=== PATIENT | female | born 1955 | race Caucasian/White ===

== ENCOUNTER 2017-05-08 21:52 | Inpatient (IN) | payer OTHER ==
--- NOTE | 2017-05-09 03:41 | PDOC ---
History of Present Illness - General History Source: Patient Exam Limitations: No Limitations - History of Present Illness Initial Comments: 05/09/17 04:19 The patient is a 62 year old female, with significant past medical history of COPD, HTN, DM, GERD, Hepatitis B, who presents today complaining of SOB and cough for 3 weeks. The patient notes that she was recently admitted to [facility] in [place] on 04/27/17 for rhinovirus and discharged on 05/02/17. She reports that the SOB is exacerbated when talking, walking, and is accompanied by medial chest pain. She used her nebulizer this morning and has been taking tapering doses of prednisone. The cough is productive with green sputum. She also reports night sweats, chills, and subjective fever. Her PCP, Dr. Russo, requested that she be admitted to the hospital. The patient notes left sided rib pain that is preventing her from sleeping on her side at night. Denies nausea, vomiting, abdominal pain. Denies leg swelling. Denies hemoptysis. Allergies: sulfamethoxazole, trimethoprim, IV dye Social Hx: Quit smoking 2 weeks ago. Lives at home alone at a ground level apartment. PCP- Dr. Russo <Christie Burch - Last Filed: 05/09/17 05:19> <Christy Bray - Last Filed: 05/09/17 06:34> - General Chief Complaint: Shortness of Breath Stated Complaint: SHORTNESS OF BREATH Time Seen by Provider: 05/09/17 01:08 Past History <Christie Burch - Last Filed: 05/09/17 05:19> - Past Medical History Anemia: No Asthma: No Cancer: No Cardiac Disorders: No CVA: No COPD: Yes CHF: No Dementia: No Diabetes: Yes GI Disorders: Yes (Acid reflux.) Disorders: No HTN: Yes Hypercholesterolemia: Yes Kidney Stones: No Liver Disease: Yes (hep b+ on medicATION) Suicide Attempt (Hx): Yes (in 1988, NO SUICIDAL IDEATION AT PRESENT) Seizures: No Thyroid Disease: Yes (THYROID NODULES NOT ON ANY MEDS) - Surgical History Abdominal Surgery: Yes (hemmorhoidectomy,left ovary removed) Orthopedic Surgery: Yes (Sx big R toe) - Reproductive History PID: No - Psycho/Social/Smoking Cessation Hx Anxiety: Yes Suicidal Ideation: No Smoking History: Former smoker Have you smoked in the past 12 months: Yes Number of Cigarettes Smoked Daily: 10 If you are a former smoker, when did you quit?: 2 weeks Information on smoking cessation initiated: No 'Breaking Loose' booklet given: 08/02/14 Hx Alcohol Use: No Drug/Substance Use Hx: Yes Substance Use Type: Heroin, Prescribed, Tranquilizers Hx Substance Use Treatment: Yes <Christy Bray - Last Filed: 05/09/17 06:34> - Past Medical History Allergies/Adverse Reactions: Allergies Allergy/AdvReac Type Severity Reaction Status Date / Time sulfamethoxazole Allergy Hives Verified 05/08/17 22:04 [From Bactrim] trimethoprim [From Bactrim] Allergy Hives Verified 05/08/17 22:04 iv dye Allergy Uncoded 05/08/17 22:04 Home Medications: Ambulatory Orders Albuterol 0.083% Nebulizer [place] [Ventolin 0.083% Nebulizer Soln -] 1 amp NEB PRN 05/09/17 Alprazolam [Xanax] 1 mg PO DAILY 05/09/17 Aspirin [ASA -] 81 mg PO DAILY 05/09/17 Azithromycin 250 mg PO DAILY 05/09/17 Dorzolamide HCl/Timolol Maleat [Cosopt Eye Drops] 10 ml OP TID 05/09/17 Enalapril Maleate [Vasotec] 20 mg PO DAILY 05/09/17 Fluoxetine HCl [Prozac] 40 mg PO DAILY 05/09/17 Flurazepam HCl 30 mg PO HS 05/09/17 Fluticasone/Salmeterol [Advair 250-50 Diskus] 05/09/17 Furosemide [Lasix -] 40 mg PO DAILY 05/09/17 Gabapentin [Neurontin -] 100 mg PO Q8H 05/09/17 Latanoprost 0.005% Eye Drops [Xalatan 0.005% Eye Drops -] 1 drop OS HS 05/09/17 Nifedipine [Nifedipine ER] 60 mg PO DAILY 05/09/17 Omeprazole Magnesium [Prilosec] 10 mg PO DAILY 05/09/17 Prednisone 10 mg PO DAILY 05/09/17 Tiotropium [place] [Spiriva] 18 mcg IH DAILY 05/09/17 Review of Systems - Review of Systems Able to Perform ROS?: Yes Comments:: 05/09/17 04:21 GENERAL/CONSTITUTIONAL: +subjective fever, night sweats, chills. HEAD, EYES, EARS, NOSE AND THROAT: No change in vision. No ear pain or discharge. No sore throat. CARDIOVASCULAR:+medial chest pain. RESPIRATORY: +SOB, +productive cough. No hemoptysis. GASTROINTESTINAL: No nausea, vomiting, diarrhea or constipation. GENITOURINARY: No dysuria, frequency, or change in urination. MUSCULOSKELETAL: No joint or muscle swelling or pain. No neck or back pain. SKIN: No rash NEUROLOGIC: No headache, vertigo, loss of consciousness, or change in strength/ sensation. ENDOCRINE: No increased thirst. No abnormal weight change. HEMATOLOGIC/LYMPHATIC: No anemia, easy bleeding, or history of blood clots. ALLERGIC/IMMUNOLOGIC: No hives or skin allergy. <Christie Burch - Last Filed: 05/09/17 05:19> *Physical Exam - Vital Signs Last Vital Signs Temp Pulse Resp BP Pulse Ox 98.5 F 82 18 123/61 97 05/08/17 22:00 05/08/17 22:00 05/08/17 22:00 05/08/17 22:00 05/08/17 22:00 - Physical Exam Comments: 05/09/17 04:21 GENERAL: Awake, alert, and fully oriented, in no acute distress HEAD: No signs of trauma EYES: PERRLA, EOMI, sclera anicteric, conjunctiva clear ENT: Auricles normal inspection, hearing grossly normal, nares patent, oropharynx clear without exudates. Moist mucosa NECK: Normal ROM, supple, no lymphadenopathy, JVD, or masses LUNGS: +wheezing throughout lungs bilaterally. No crackles. HEART: Regular rate and rhythm, normal S1 and S2, no murmurs, rubs or gallops ABDOMEN: Soft, nontender, normoactive bowel sounds. No guarding, no rebound. No masses EXTREMITIES: Normal range of motion, no edema. No clubbing or cyanosis. No cords, erythema, or tenderness NEUROLOGICAL: Cranial nerves II through XII grossly intact. Normal speech, normal gait SKIN: Warm, Dry, normal turgor, no rashes or lesions noted. <Christie Burch - Last Filed: 05/09/17 05:19> - Vital Signs Last Vital Signs Temp Pulse Resp BP Pulse Ox 98.5 F 82 18 123/61 97 05/08/17 22:00 05/08/17 22:00 05/08/17 22:00 05/08/17 22:00 05/08/17 22:00 <Christy Bray - Last Filed: 05/09/17 06:34> ED Treatment Course - LABORATORY CBC & Chemistry Diagram: 05/09/17 04:18 05/09/17 04:18 - RADIOLOGY Radiograph Interpretation: 05/09/17 05:15 EXAM: CT chest without contrast IMAGES: [id number] INDICATION: Cough with chills and sweats DATE OF SERVICE: 2017-05-09 04:38:09.0 COMPARISON: none FINDINGS: There is no aortic aneurysm. There is no significant mediastinal or hilar adenopathy. The heart size is normal. Coronary artery calcifications are noted The trachea and bronchi are patent. There is no pleural or pericardial effusion. The lungs are clear. Intra-abdominal structures are notable only for tiny nonobstructing left renal stone. IMPRESSION: No acute pathology. THIS DOCUMENT HAS BEEN ELECTRONICALLY SIGNED Smooth Chávez MD <Christie Burch - Last Filed: 05/09/17 05:19> - LABORATORY CBC & Chemistry Diagram: 05/09/17 04:18 05/09/17 04:18 <Christy Bray - Last Filed: 05/09/17 06:34> Medical Decision Making - Medical Decision Making 05/09/17 06:31 Pt will be admitted to her [facility]'s service, as he sent her for admission for a week of SOB, hot and cold chills and subjective fevers and COPD exacerbation. Pt has green productive cough. However, her CT scan of her chest shows no pathology. SHe states that she was exposed to her son, who recently traveled to [facility] from [facility], [place] where he has lived for the last 4 years. Pt has a normal exam. She is afebrile. The only positive finding is Bilateral wheezing in her lung hassan throughout. Patient Name: Verónica Gutierrez THIS IS A PRELIMINARYREPORT FROM [facility] EXAM: CT chest without contrast IMAGES: [id number] INDICATION: Cough with chills and sweats DATE OF SERVICE: 2017-05-09 04:38:09.0 COMPARISON: none FINDINGS: There is no aortic aneurysm. There is no significant mediastinal or hilar adenopathy. The heart size is normal. Coronary artery calcifications are noted The trachea and bronchi are patent. There is no pleural or pericardial effusion. The lungs are clear. Intra-abdominal structures are notable only for tiny nonobstructing left renal stone.. IMPRESSION: No acute pathology. THIS DOCUMENT HAS BEEN ELECTRONICALLY SIGNED Dr. Leo arreola and is aware of the patient. <Christy Bray - Last Filed: 05/09/17 06:34> *DC/Admit/Observation/Transfer - Attestations Scribe Attestion: 05/09/17 04:22 Documentation prepared by FANNY Harris, acting as biomedical repair technician for Christy Bray MD. <Christie Burch - Last Filed: 05/09/17 05:19> - Discharge Dispostion Admit: Yes <Christy Bray - Last Filed: 05/09/17 06:34> Diagnosis at time of Disposition: COPD (chronic obstructive pulmonary disease) with emphysema, Obesity, Nicotine dependence - Referrals Referrals: Cait Russo MD [Primary Care Provider] -
[2017-05-09] MEDS ORDERED: ALBUTEROL SO4 2.5/IPRATROPIUM 0.5 INH SOL 3 ML VIAL.NEB. NEB ONE (04:04)
[2017-05-09] MEDS ORDERED: DOXYCYCLINE INJECTION 100 MG in DEXTROSE 5%-WATER - 100 ML IVPB ONE (04:04)
[2017-05-09 04:26] LABS: BASOPHIL 0.7 % (0-2.0); EOSINOPHIL 0.5 % (0-4.5); MCH 29.8 pg (25.7-33.7); MCHC 33.1 g/dl (32.0-36.0); MEAN CELL VOLUME 89.9 fl (80-96); MEAN PLT VOLUME 7.9 fl (7.5-11.1); PLATELET COUNT 269 K/MM3 (134-434); RDW 12.3 % (11.6-15.6); WHITE BLOOD COUNT 14.8 K/mm3 (4.0-10.0)
[2017-05-09 05:06] LABS: ALBUMIN 3.6 g/dl (3.4-5.0); ALK PHOS 120 U/L (45-117); ANION GAP 8 (8-16); BILIRUBIN,TOTAL 0.4 mg/dL (0.2-1.0); CALCIUM 9.2 mg/dL (8.5-10.1); CO2 30 mmol/L (21-32); GLUCOSE,RANDOM 194 mg/dL (74-106); SGPT/ALT 25 U/L (12-78); TOT PROT 6.8 g/dl (6.4-8.2)
[2017-05-09 05:10] LABS: SGOT/AST 19 U/L (15-37)
[2017-05-09] MEDS ORDERED: ALBUTEROL SO4 0.083% IH SOL 2.5 MG/3 ML VIAL.NEB. NEB PRN (10:46)
[2017-05-09 11:28] VITALS: BMI 35.2
[2017-05-09] MEDS ORDERED: LEVOFLOXACIN 500 MG IVPB 100 ML IVPB SCH (11:45)
[2017-05-09] MEDS ORDERED: PATIENT'S OWN MEDICATION (NON-FORMULARY) (Dorzolamide Hcl/Timolol Maleat [Cosopt Eye Drops OP SCH (14:00)
[2017-05-09] MEDS: GABAPENTIN 100 MG CAPSULE (FP) PO SCH ×2 (14:13→22:39)
[2017-05-09] MEDS ORDERED: methylPREDNISolone NA SUCC 40 MG/1 ML VIAL IVPB SCH (18:00)
[2017-05-09] MEDS ORDERED: predniSONE 20 MG TABLET (UD) PO ONE (21:30)
[2017-05-09] MEDS ORDERED: FLURAZEPAM HCL 30 MG PO SCH (22:00)
[2017-05-09] MEDS: TIMOLOL 0.5% OPHTHALMIC SOL 5 ML BOTTLE OU SCH (22:39)
[2017-05-09] MEDS: BUDESONIDE/FORMETEROL FUMARATE 80/4.5 mcg INHALER IH SCH (22:39)
[2017-05-09] MEDS: LATANOPROST 0.005% OPHTH SOLN 2.5ML BOTTLE OS SCH (22:40)
[2017-05-09] MEDS: ACLIDINIUM BROMIDE 400 MCG/INH AERO.POWD IH SCH (22:40)
[2017-05-09] MEDS: DORZOLAMIDE 2% HCL OPHTHALMIC SOLUTION 10 ML BOTTLE OU SCH (22:40)
--- NOTE | 2017-05-09 22:53 | HP ---
Admitting History and Physical - Admission Chief Complaint: Dyspnea for 3 weeks History of Present Illness: 62 y/o female with PMH as below, presents with 3 weeks of worsening cough, productive of greenish sputum, dyspnea, more on exertion and pleuritic chest pain. Pt was recently admitted to another facility for the same complaints. History Source: Patient, Medical Record, Caregiver Limitations to Obtaining History: No Limitations - Past Medical History Cardiovascular: Yes: HTN Pulmonary: Yes: COPD Gastrointestinal: Yes: GERD Hepatobiliary: Yes: Hepatitis B Psych: Yes: Depression Endocrine: Yes: Diabetes Mellitus, Other (Thyroid nodule) - Past Surgical History Past Surgical History: Yes: Oopherectomy Additional Past Surgical History: Hemorrhoidectome, toe surgery - Smoking History Smoking history: Former smoker Have you smoked in the past 12 months: Yes Aproximately how many cigarettes per day: 4 If you are a former smoker, when did you quit?: 2 weeks - Alcohol/Substance Use Hx Alcohol Use: No History of Substance Use: reports: None Home Medications - Allergies Allergies/Adverse Reactions: Allergies Allergy/AdvReac Type Severity Reaction Status Date / Time methylprednisolone Allergy Verified 05/09/17 17:57 sulfamethoxazole Allergy Hives Verified 05/08/17 22:04 [From Bactrim] trimethoprim [From Bactrim] Allergy Hives Verified 05/08/17 22:04 iv dye Allergy Uncoded 05/08/17 22:04 - Home Medications Home Medications: Ambulatory Orders Albuterol 0.083% Nebulizer [place] [Ventolin 0.083% Nebulizer Soln -] 1 amp NEB PRN 05/09/17 Alprazolam [Xanax] 1 mg PO DAILY 05/09/17 Aspirin [ASA -] 81 mg PO DAILY 05/09/17 Azithromycin 250 mg PO DAILY 05/09/17 Dorzolamide HCl/Timolol Maleat [Cosopt Eye Drops] 10 ml OP TID 05/09/17 Enalapril Maleate [Vasotec] 20 mg PO DAILY 05/09/17 Fluoxetine HCl [Prozac] 40 mg PO DAILY 05/09/17 Flurazepam HCl 30 mg PO HS 05/09/17 Fluticasone/Salmeterol [Advair 250-50 Diskus] 05/09/17 Furosemide [Lasix -] 40 mg PO DAILY 05/09/17 Gabapentin [Neurontin -] 100 mg PO Q8H 05/09/17 Latanoprost 0.005% Eye Drops [Xalatan 0.005% Eye Drops -] 1 drop OS HS 05/09/17 Nifedipine [Nifedipine ER] 60 mg PO DAILY 05/09/17 Omeprazole Magnesium [Prilosec] 10 mg PO DAILY 05/09/17 Prednisone 10 mg PO DAILY 05/09/17 Tiotropium [place] [Spiriva] 18 mcg IH DAILY 05/09/17 Family Disease History - Family Disease History Family History: Unremarkable Review of Systems - Review of Systems Constitutional: reports: Chills, Fever Eyes: reports: No Symptoms Cardiovascular: reports: Shortness of Breath Respiratory: reports: SOB, SOB on Exertion Neurological: reports: Weakness Physical Examination Vital Signs: Vital Signs Temperature 98.7 F 05/09/17 18:00 Pulse Rate 65 05/09/17 18:00 Respiratory Rate 20 05/09/17 18:00 Blood Pressure 143/76 05/09/17 18:00 O2 Sat by Pulse Oximetry (%) 98 05/09/17 08:55 Constitutional: Yes: No Distress HENT: Yes: Atraumatic, Normocephalic Neck: Yes: Supple Cardiovascular: Yes: Regular Rate and Rhythm, S1, S2 Respiratory: Yes: Regular, Rhonchi Gastrointestinal: Yes: Normal Bowel Sounds, Soft Neurological: Yes: Alert, Oriented. No: Loss of Sensation ...Motor Strength: WNL Imaging - Results Cat Scan: Report Reviewed Problem List - Problems (1) COPD (chronic obstructive pulmonary disease) with emphysema Assessment/Plan: Steroids, nebs, pulmonary evaluation Code(s): J43.9 - EMPHYSEMA, UNSPECIFIED Qualifiers: Emphysema type: unspecified Qualified Code(s): J43.9 - Emphysema, unspecified (2) HTN (hypertension) Assessment/Plan: Controlled Code(s): I10 - ESSENTIAL (PRIMARY) HYPERTENSION Qualifiers: Hypertension type: essential hypertension Qualified Code(s): I10 - Essential (primary) hypertension (3) Hepatitis B Assessment/Plan: Controlled, on treatment Code(s): B19.10 - UNSPECIFIED VIRAL HEPATITIS B WITHOUT HEPATIC COMA (4) Type 2 diabetes mellitus Assessment/Plan: Monitor, insulin as needed Code(s): E11.9 - TYPE 2 DIABETES MELLITUS WITHOUT COMPLICATIONS Qualifiers: Diabetes mellitus complication status: without complication Diabetes mellitus halfway insulin use: with halfway use Qualified Code(s): E11.9 - Type 2 diabetes mellitus without complications (5) Leukocytosis Assessment/Plan: May be due to acute bronchitis. Empiric antibiotics started. Urine and blood c/ s pending Code(s): D72.829 - ELEVATED WHITE BLOOD CELL COUNT, UNSPECIFIED Qualifiers: Leukocytosis type: unspecified Qualified Code(s): D72.829 - Elevated white blood cell count, unspecified
[2017-05-10] MEDS: TIMOLOL 0.5% OPHTHALMIC SOL 5 ML BOTTLE OU SCH ×3 (01:18→23:21)
[2017-05-10] MEDS: INSULIN SLIDING SCALE (NOVOLOG) 1 VIAL SQ SCH ×4 (04:16→17:29)
[2017-05-10] MEDS: GABAPENTIN 100 MG CAPSULE (FP) PO SCH ×3 (05:58→23:14)
[2017-05-10] MEDS ORDERED: PT OWN MED DRAWER 7, Y5N ONE ×2 (06:42→23:01)
[2017-05-10] MEDS ORDERED: ACETAMINOPHEN 325 MG TABLET (FP) PO PRN (07:22)
--- NOTE | 2017-05-10 07:29 | PN ---
Progress Note (short form) - Note Progress Note: Feels weak with chills and productive green sputum, wheezing. Vital Signs Period Temp Pulse Resp BP Sys/Gordon Pulse Ox Last 24 Hr 98.2 F-98.7 F 55-66 20-20 136-151/72-84 94-98 Afebrile in hospital no thrush neck supple S1S2 RRR SM diffuse bilateral expiratory wheezing abd soft mild lower thoracic back tenderness on palpation no edema nonfocal neuro exam Imp Acute COPD exacerbation Bronchitis -has been treated with iv steroids,medrol dose pack,zithromax since ~04.28.17 , has been on levaquin for past 4 days without improvement -she was diagnosed with rhinovirus infection NIDDM Obesity Smoking history-last use 2 weeks ago Plan iv steroids po augmentin pulmonary eval echo for pericardial effusion GI/DVT prophylaxis
[2017-05-10 08:20] LABS: MCHC 33.5 g/dl (32.0-36.0); MEAN CELL VOLUME 89.4 fl (80-96); MEAN PLT VOLUME 8.4 fl (7.5-11.1); PLATELET COUNT 251 K/MM3 (134-434); WHITE BLOOD COUNT 11.2 K/mm3 (4.0-10.0)
[2017-05-10 08:46] LABS: ALBUMIN 3.4 g/dl (3.4-5.0); ALK PHOS 108 U/L (45-117); ANION GAP 11 (8-16); BILIRUBIN,TOTAL 0.3 mg/dL (0.2-1.0); CALCIUM 9.1 mg/dL (8.5-10.1); CO2 26 mmol/L (21-32); GLUCOSE,RANDOM 290 mg/dL (74-106); MAGNESIUM 2.4 mg/dL (1.8-2.4); SGOT/AST 14 U/L (15-37); SGPT/ALT 24 U/L (12-78); TOT PROT 6.4 g/dl (6.4-8.2)
[2017-05-10] MEDS: AMOX TR/POT CLAV 875MG/125MG TABLETS (FP) PO SCH ×2 (09:00→17:47)
[2017-05-10] MEDS ORDERED: ALPRAZolam 2 MG TABLET PO SCH (10:00)
[2017-05-10] MEDS ORDERED: ENOXAPARIN NA (PORCINE) 40 MG/0.4 ML DISP.SYRIN SQ SCH (10:00)
[2017-05-10] MEDS ORDERED: ASPIRIN 81 MG CHEWABLE TABLETS PO SCH (10:00)
[2017-05-10] MEDS ORDERED: TIOTROPIUM BROMIDE 18 MCG/INH (DEVICE W/ 5 CAPSULES) IH SCH (10:00)
[2017-05-10] MEDS ORDERED: NIFEdipine E.R 60 MG TABLET (UD) PO SCH (10:00)
[2017-05-10] MEDS ORDERED: predniSONE 20 MG TABLET (UD) PO SCH (10:00)
[2017-05-10] MEDS: FLUoxetine HCL 20 MG CAPSULE (FP) PO SCH (10:17)
[2017-05-10] MEDS: FUROSEMIDE 40 MG TABLET (FP) PO SCH (10:17)
[2017-05-10] MEDS: ENALAPRIL MALEATE 10 MG TABLET (FP) PO SCH (10:17)
[2017-05-10] MEDS: BUDESONIDE/FORMETEROL FUMARATE 80/4.5 mcg INHALER IH SCH ×2 (10:18→23:21)
[2017-05-10] MEDS: PANTOPRAZOLE 20 MG TABLET (FP) PO SCH (10:18)
[2017-05-10] MEDS: ACLIDINIUM BROMIDE 400 MCG/INH AERO.POWD IH SCH ×2 (10:24→23:21)
[2017-05-10] MEDS: DORZOLAMIDE 2% HCL OPHTHALMIC SOLUTION 10 ML BOTTLE OU SCH ×2 (10:24→23:19)
--- NOTE | 2017-05-10 10:40 | EKG ---
Test Reason : Blood Pressure : / mmHG Vent. Rate : 065 BPM Atrial Rate : 065 BPM P-R Int : 140 ms QRS Dur : 088 ms QT Int : 410 ms P-R-T Axes : 043 045 061 degrees QTc Int : 426 ms NORMAL SINUS RHYTHM POSSIBLE LEFT ATRIAL ENLARGEMENT NONSPECIFIC T WAVE ABNORMALITY ABNORMAL ECG WHEN COMPARED WITH ECG OF 18-JUL-2014 14:45, NO SIGNIFICANT CHANGE WAS FOUND Confirmed by PENNY ARRIAGA MD ([id number]) on 05/10/2017 10:40:18 AM Referred By: Confirmed By:PENNY ARRIAGA MD
[2017-05-10] MEDS: methylPREDNISolone NA SUCC 40 MG/1 ML VIAL IVPB SCH ×2 (11:00→17:47)
[2017-05-10 11:29] LABS: URINE APPEARANCE SLCLOUDY; URINE BILIRUBIN NEGATIVE (NEGATIVE); URINE BLOOD NEGATIVE (NEGATIVE); URINE COLOR LTYELLOW; URINE GLUCOSE (UA) 3+ (NEGATIVE); URINE KETONE TRACE (NEGATIVE); URINE NITRITE NEGATIVE (NEGATIVE); URINE PROTEIN NEGATIVE (NEGATIVE); URINE UROBILINOGEN NEGATIVE E.U./dl (0.2-1.0)
[2017-05-10 11:30] LABS: URINE LEUK ESTERASE TRACE (NEGATIVE)
[2017-05-10 11:47] LABS: CALCIUM OXALATE CRYSTALS RARE /hpf (NONE SEEN); URINE BACTERIA RARE /hpf (NONE SEEN); URINE MUCUS RARE; URINE RBC 1 /hpf (0-3); URINE WBC 11 /hpf (3-5); YEAST RARE
--- NOTE | 2017-05-10 13:57 | CONSULT ---
Consultation: REQUESTING PROVIDER: CONSULT REQUEST: We have been asked to medically evaluate this patient for COPD exacerbation/PNA. CC: Shortness of breathe HISTORY OF PRESENT ILLNESS: 62 y/o woman w/ pmh of COPD, GERD, HTN and DM, who presented to the ED with 1.5 weeks of worsening cough and SOB after viral URI. As baseline, pt has poor exercise tolerance, able to ambulate around 0.5 blocks before becoming SOB, with hx of multiple COPD exacerbations requiring hospitalization over the past 8 -9 years. Pt was in this normal state of health, when she endorses seeing her son, who had recently returned from a trip to [place] with infectious symptoms ( fever, chills, cough). 2 days later, the pt states she began feeling chills and fever, sweating with severe throat pain. She was admitted at [facility] for her condition and was diagnosed with a suspected viral URI. Pt states she was negative for PNA at the time. She was treated conservatively and d/c'ed 6 days later on Azithromycin and steroid taper after developing a productive cough with green sputum and rhinorrhea during the admission. Pt was seen by her PMD after d/c recent to this admission and was urged to return to hospital due to cough and respiratory status. Pt endorses fever, chills, SOB, productive cough and rhinorrhea, as well as upper and lower extremity swelling of 1 weeks duration. She denies hemoptysis, CHAO, N/V, recent changes in bowel movements, dysuria, abdominal pain, or chest pain. She denies recent travel, changes in activity level/diet, exposure to allergens or medication changes. She has been hospitalized 10-11 times over the past 8-9 years for COPD exacerbation, but states this admission is different given her infectious symptoms. She is currently on 2L NC O2 at home PRN, in addition to duoneb, spiriva, and albuterol, but endorses moderate symptom control. Uses inhaler every day. Endorses a 50 year smoking hx, 1ppd, quitting 2 weeks ago. Recent hospitalization for PNA 1 month ago w/ uncomplicated course. PMH As stated above: Asthma - dx at 30-40s MRSA cellulitis - 2013 Hep B Depression Thyroid nodule Congenital MVP per pt PSH oopherectomy hemorrhoidectomy partial hysterectomy tonsillectomy carpal tunnel surgery Allergies Methylpredisolone - Chest tightness Sulfa drugs - Hives IV contrast - Unknown Fam Hx Father w/ lung CA. Mother with COPD. Aunt w/ CAD. Son w/ asthma. Social Hx 50 py smoking hx, quit 2 weeks ago. No drugs. No alcohol. Worked as house painter, nanny, other odd jobs, now retired. REVIEW OF SYSTEMS: CONSTITUTIONAL: Fevers, chills, diaphoresis, weakness, malaise Absent: loss of appetite, weight change HEENT: rhinorrhea, nasal congestion, throat pain, throat swelling, odynophagia Absent: mouth swelling, ear pain, eye pain, visual changes CARDIOVASCULAR: chest pain, palpitations Absent: syncope, irregular heart rate, lightheadedness, peripheral edema RESPIRATORY: cough, shortness of breath, dyspnea with exertion, wheezing Absent: orthopnea, wheezing, hemoptysis GASTROINTESTINAL: Constipation Absent: abdominal pain, abdominal distension, nausea, vomiting, diarrhea, melena, hematochezia GENITOURINARY: Absent: dysuria, frequency, urgency, hesitancy, hematuria, flank pain, genital pain MUSCULOSKELETAL: Absent: myalgia, arthralgia, joint swelling, back pain, neck pain HEMATOLOGIC/IMMUNOLOGIC: Absent: easy bleeding, easy bruising, lymphadenopathy, frequent infections NEUROLOGIC: Absent: headache, dizziness, seizure PHYSICAL EXAMINATION Vital Signs - 24 hr 05/09/17 05/09/17 05/09/17 15:44 18:00 21:00 Temperature 98.7 F 98.7 F Pulse Rate 59 L 65 Respiratory 20 Rate Blood Pressure 150/84 143/76 O2 Sat by Pulse 94 L Oximetry (%) 05/09/17 05/10/17 05/10/17 22:00 06:02 09:11 Temperature 98.2 F 98.4 F 98.6 F Pulse Rate 57 L 66 71 Respiratory 20 20 18 Rate Blood Pressure 138/84 151/83 144/72 O2 Sat by Pulse Oximetry (%) GENERAL: Awake, alert, and fully oriented, in no acute distress. No temporal wasting or arteritis. Obese. HEAD: Normal with no signs of trauma. No lymphadenopathy EYES: Pupils equal, round and reactive to light, extraocular movements intact, sclera anicteric, conjunctiva clear. No lid lag. EARS, NOSE, THROAT: Ears normal, mild congestion in nares, oropharynx clear without exudates. Moist mucous membranes. NECK: supple without lymphadenopathy, JVD, or masses. LUNGS: Diffuse rales throughout all lung hassan. Prominent inspiratory/ expiratory wheeze. No accessory muscle use. HEART: Regular rate and rhythm, normal S1 and S2. Grade III/ blowing systolic murmur appreciable at RUSB and apex. ABDOMEN: Soft, nontender, globular abdomen. Normoactive bowel sounds, no guarding, no rebound, no masses. No hepatomegaly or splenomegaly. Bilateral ecchymoses on lower abdomen. MUSCULOSKELETAL: No bony deformities or tenderness. No CVA tenderness. UPPER EXTREMITIES: 2+ pulses, warm, well-perfused. No cyanosis. No clubbing. Cap refill <2 seconds. No peripheral edema. Possible spooning of nail-bed. LOWER EXTREMITIES: 2+ pulses, warm, well-perfused. No calf tenderness. 1+ non- pitting edema bilaterally. Wearing compression stockings NEUROLOGICAL: Cranial nerves II-XII intact. Normal speech. 5/5 strength in upper and lower extremities grossly. Limited/no sensation bilaterally in feet. PSYCHIATRIC: Cooperative. Good eye contact. Appropriate mood and affect. SKIN: Warm, dry, normal turgor, no rashes or lesions noted. Laboratory Results - last 24 hr 05/09/17 05/09/17 05/10/17 16:24 22:44 05:59 WBC RBC Hgb Hct MCV MCH MCHC RDW Plt Count MPV Sodium Potassium Chloride Carbon Dioxide Anion Gap BUN Creatinine Creat Clearance w eGFR POC Glucometer 162 157 279 Random Glucose Calcium Magnesium Total Bilirubin AST ALT Alkaline Phosphatase Total Protein Albumin Urine Color Urine Appearance Urine pH Urine Protein Urine Glucose (UA) Urine Ketones Urine Blood Urine Nitrite Urine Bilirubin Urine Urobilinogen Ur Leukocyte Esterase Urine RBC Urine WBC Ur Epithelial Cells Calcium Oxalate Crystal Urine Bacteria Urine Mucus Urine Yeast 05/10/17 05/10/17 05/10/17 06:30 06:30 10:00 WBC 11.2 H RBC 4.98 Hgb 14.9 Hct 44.5 MCV 89.4 MCH 30.0 MCHC 33.5 RDW 12.0 Plt Count 251 MPV 8.4 Sodium 139 Potassium 4.7 Chloride 102 Carbon Dioxide 26 Anion Gap 11 BUN 18 D Creatinine 1.0 Creat Clearance w eGFR 56.37 POC Glucometer Random Glucose 290 H D Calcium 9.1 Magnesium 2.4 Total Bilirubin 0.3 D AST 14 L D ALT 24 Alkaline Phosphatase 108 Total Protein 6.4 Albumin 3.4 Urine Color Ltyellow Urine Appearance Slcloudy Urine pH 6.0 Urine Protein Negative Urine Glucose (UA) 3+ H Urine Ketones Trace H Urine Blood Negative Urine Nitrite Negative Urine Bilirubin Negative Urine Urobilinogen Negative Ur Leukocyte Esterase Trace H Urine RBC 1 Urine WBC 11 Ur Epithelial Cells Rare Calcium Oxalate Crystal Rare Urine Bacteria Rare Urine Mucus Rare Urine Yeast Rare 05/10/17 11:53 WBC RBC Hgb Hct MCV MCH MCHC RDW Plt Count MPV Sodium Potassium Chloride Carbon Dioxide Anion Gap BUN Creatinine Creat Clearance w eGFR POC Glucometer 197 Random Glucose Calcium Magnesium Total Bilirubin AST ALT Alkaline Phosphatase Total Protein Albumin Urine Color Urine Appearance Urine pH Urine Protein Urine Glucose (UA) Urine Ketones Urine Blood Urine Nitrite Urine Bilirubin Urine Urobilinogen Ur Leukocyte Esterase Urine RBC Urine WBC Ur Epithelial Cells Calcium Oxalate Crystal Urine Bacteria Urine Mucus Urine Yeast Micro: Urine cx pending Blood cx pending Studies: EKG (05/09): NSR rate 65. Nrml [place], QT interval. Normal axis. No ST elevation or T- wave changes. No LVH/RVH. Non-con Chest CT (05/09): No consolidations, mass, pleural effusions or pneumothorax. Trace pericardial effusion. Pulm trunk dilated 3.6cm, possibly suggestive of pulm HTN. Mild bronchial wall thickening consistent with bronchitis. Active Medications Generic Name Dose Route Start Last Admin Trade Name Freq PRN Reason Stop Dose Admin Acetaminophen 650 mg 05/10/17 07:22 Tylenol - PO Q4H PRN FEVER OR PAIN Aclidinium [place] 1 puff 05/09/17 22:00 05/10/17 10:24 Tudorza - IH 1 puff BID KENNY Administration Albuterol Sulfate 1 amp 05/09/17 10:46 Ventolin 0.083% Nebulizer Soln - NEB Q4H PRN Dyspnea Alprazolam 1 mg 05/10/17 10:00 05/10/17 10:21 Xanax - PO 1 mg DAILY KENNY Administration Amoxicillin/Clavulanate Potassium 1 tab 05/10/17 08:00 05/10/17 09:00 Augmentin - 875mg Tablet PO 1 tab BID@0800,1730 KENNY Administration Aspirin 81 mg 05/10/17 10:00 05/10/17 10:18 Asa - PO 81 mg DAILY KENNY Administration Budesonide/Formoterol Fumarate 2 puff 05/09/17 22:00 05/10/17 10:18 Symbicort 80/4.5mcg - IH 2 puff BID KENNY Administration Dorzolamide HCl 1 drop 05/09/17 22:00 05/10/17 10:24 Trusopt 2% OU 1 drop BID KENNY Administration Enalapril Maleate 20 mg 05/10/17 10:00 05/10/17 10:17 Vasotec - PO 20 mg DAILY KENNY Administration Enoxaparin Sodium 40 mg 05/10/17 10:00 05/10/17 10:17 Lovenox - SQ 40 mg DAILY KENNY Administration Fluoxetine HCl 40 mg 05/10/17 10:00 05/10/17 10:17 Prozac - PO 40 mg DAILY KENNY Administration Furosemide 40 mg 05/10/17 10:00 05/10/17 10:17 Lasix - PO 40 mg DAILY KENNY Administration Gabapentin 100 mg 05/09/17 14:00 05/10/17 05:58 Neurontin - PO 100 mg TID KENNY Administration Insulin Aspart 1 vial 05/10/17 07:00 05/10/17 11:54 Novolog Vial Sliding Scale - SQ Not Given TIDAC [facility] Protocol Latanoprost 1 drop 05/09/17 22:00 05/09/17 22:40 Xalatan 0.005% Eye Drops - OS 1 drop HS KENNY Administration Methylprednisolone Sodium Succinate 40 mg 05/10/17 10:00 05/10/17 11:00 Solu-Medrol - IVPB 40 mg Q8H-IV KENNY Administration Nifedipine 60 mg 05/10/17 10:00 05/10/17 10:17 Procardia Xl - PO 60 mg DAILY KENNY Administration Pantoprazole Sodium 20 mg 05/10/17 10:00 05/10/17 10:18 Protonix - PO 20 mg DAILY KENNY Administration Timolol Maleate 1 drop 05/09/17 22:00 05/10/17 10:41 Timoptic 0.5% OU Not Given BID [facility] ASSESSMENT/PLAN: Assessment: 62 yo woman w/ pmh of COPD, GERD, HTN and DM, who presented to the ED with 1.5 weeks of worsening cough and SOB after viral URI, now w/ suspected COPD exacerbation/possible PNA. Physical exam notable for diffuse rhonchi and inspiratory/expiratory wheezing across all lung hassan. Labs and studies notable for unremarkable CT scan, pericardial hematoma on Echo, and elevated WBC. Pt will require f/u outpatient management of COPD for symptom control. Plan: #COPD exacerbation: - Inhaled bronchodilators - Increase symbicort to 160 mcg - Increase Solumedrol 40mg Q8h -> Q6h - O2 NC PRN - Recommend yearly CT scan screening - Outpatient PFTs - Abx for CAP coverage #Pericardial hematoma - F/u ECHO in 1 month - Consider P HTN work-up Marshall Wooten MD, PGY1 Plan discussed with attending, Dr. Mai. Dispo: We will continue to follow the patient. Thank you for this consultative opportunity. Problem List - Problems (1) Atypical chest pain Code(s): R07.89 - OTHER CHEST PAIN (2) Mitral valve prolapse syndrome Code(s): I34.1 - NONRHEUMATIC MITRAL (VALVE) PROLAPSE (3) Pericardial hematoma Code(s): I31.2 - HEMOPERICARDIUM, NOT ELSEWHERE CLASSIFIED (4) COPD (chronic obstructive pulmonary disease) with emphysema Code(s): J43.9 - EMPHYSEMA, UNSPECIFIED Qualifiers: Emphysema type: unspecified Qualified Code(s): J43.9 - Emphysema, unspecified Visit type - Emergency Visit Emergency Visit: No - New Patient This patient is new to me today: Yes Date on this admission: 05/10/17 - Critical Care Critical Care patient: No
--- NOTE | 2017-05-10 15:53 | CON.CARD ---
Consult Consult Specialty:: Cardiology Referred by:: Dr. Dobbins Reason for Consultation:: Pericardial hematoma - History of Present Illness Chief Complaint: Dyspnea History of Present Illness: 62 y/o female with h/o COPD, chronic tobacco abuse, GERD, HTN and DM, presents with 3 weeks of worsening cough, productive of greenish sputum, fevers, chills, dyspnea, more on exertion and pleuritic chest pain after viral URI referable to AE COPD, echo showed echodensity in pericardium suspicious for hematoma. - History Source History Provided By: Patient Limitations to Obtaining History: No Limitations - Past Medical History Cardio/Vascular: Yes: HTN Pulmonary: Yes: COPD Gastrointestinal: Yes: GERD Hepatobiliary: Yes: Hepatitis B Psych: Yes: Depression Endocrine: Yes: Diabetes Mellitus, Other (Thyroid nodule) - Past Surgical History Past Surgical History: Yes: Oopherectomy - Alcohol/Substance Use Hx Alcohol Use: No History of Substance Use: reports: None - Smoking History Smoking history: Former smoker Have you smoked in the past 12 months: Yes Aproximately how many cigarettes per day: 4 If you are a former smoker, when did you quit?: 2 weeks Home Medications - Allergies Allergies/Adverse Reactions: Allergies Allergy/AdvReac Type Severity Reaction Status Date / Time methylprednisolone Allergy Verified 05/09/17 17:57 sulfamethoxazole Allergy Hives Verified 05/08/17 22:04 [From Bactrim] trimethoprim [From Bactrim] Allergy Hives Verified 05/08/17 22:04 iv dye Allergy Uncoded 05/08/17 22:04 - Home Medications Home Medications: Ambulatory Orders Albuterol 0.083% Nebulizer [place] [Ventolin 0.083% Nebulizer Soln -] 1 amp NEB PRN 05/09/17 Alprazolam [Xanax] 1 mg PO DAILY 05/09/17 Aspirin [ASA -] 81 mg PO DAILY 05/09/17 Azithromycin 250 mg PO DAILY 05/09/17 Dorzolamide HCl/Timolol Maleat [Cosopt Eye Drops] 10 ml OP TID 05/09/17 Enalapril Maleate [Vasotec] 20 mg PO DAILY 05/09/17 Fluoxetine HCl [Prozac] 40 mg PO DAILY 05/09/17 Flurazepam HCl 30 mg PO HS 05/09/17 Fluticasone/Salmeterol [Advair 250-50 Diskus] 05/09/17 Furosemide [Lasix -] 40 mg PO DAILY 05/09/17 Gabapentin [Neurontin -] 100 mg PO Q8H 05/09/17 Latanoprost 0.005% Eye Drops [Xalatan 0.005% Eye Drops -] 1 drop OS HS 05/09/17 Nifedipine [Nifedipine ER] 60 mg PO DAILY 05/09/17 Omeprazole Magnesium [Prilosec] 10 mg PO DAILY 05/09/17 Prednisone 10 mg PO DAILY 05/09/17 Tiotropium [place] [Spiriva] 18 mcg IH DAILY 05/09/17 Review of Systems - Review of Systems Respiratory: reports: Cough, SOB, Wheezing Vital Signs: Vital Signs Temperature 98.4 F 05/10/17 14:12 Pulse Rate 75 05/10/17 14:12 Respiratory Rate 20 05/10/17 14:12 Blood Pressure 138/71 05/10/17 14:12 O2 Sat by Pulse Oximetry (%) 97 05/10/17 09:00 Constitutional: Yes: No Distress, Calm Neck: Yes: Supple Respiratory: Yes: Regular, Diminished, On Nasal O2 Gastrointestinal: Yes: Normal Bowel Sounds, Soft Cardiovascular: Yes: Regular Rate and Rhythm JVD: No Carotid Bruit: No Heart Sounds: Yes: S1, S2 Murmur: Yes: Systolic Murmur, Grade 1 Edema: No - Other Data Labs, Other Data: CBC, BMP 05/10/17 06:30 05/10/17 06:30 NSR @ 65 LAE Echo: Report Reviewed Ejection Fraction %: LVEF > or = 40 % Imaging - Results Cat Scan: Report Reviewed (+ Bronchitis, no infiltrates or effusions, dilated PA ) Problem List - Problems (1) COPD (chronic obstructive pulmonary disease) with emphysema Code(s): J43.9 - EMPHYSEMA, UNSPECIFIED Qualifiers: Emphysema type: unspecified Qualified Code(s): J43.9 - Emphysema, unspecified (2) Obesity Code(s): E66.9 - OBESITY, UNSPECIFIED (3) HTN (hypertension) Code(s): I10 - ESSENTIAL (PRIMARY) HYPERTENSION Qualifiers: Hypertension type: essential hypertension Qualified Code(s): I10 - Essential (primary) hypertension (4) Type 2 diabetes mellitus Code(s): E11.9 - TYPE 2 DIABETES MELLITUS WITHOUT COMPLICATIONS Qualifiers: Diabetes mellitus complication status: without complication Diabetes mellitus dedicated intermodal truck driver insulin use: with dedicated intermodal truck driver use Qualified Code(s): E11.9 - Type 2 diabetes mellitus without complications (5) Mitral valve prolapse syndrome Code(s): I34.1 - NONRHEUMATIC MITRAL (VALVE) PROLAPSE (6) Atypical chest pain Code(s): R07.89 - OTHER CHEST PAIN (7) Pericardial hematoma Code(s): I31.2 - HEMOPERICARDIUM, NOT ELSEWHERE CLASSIFIED Assessment/Plan 05/10/2017 Normal biventricular size and fxn, no sig valve abnl, echodensity in pericardium suggestive of hematoma, mass less likely 1. Acute COPD exacerbation, acute bronchitis 2. Atypical chest pain syndrome 3. Mitral valve prolapse syndrome 4. Suspect pericardial hematoma, mass less likely 5. Type 2 DM 6. OSAS suspect 7. Former tobacco dependence 8. HTN/HCVD 9. Diastolic dysfunction P:1. Course of IV steroids, BD, empric abx, O2 as needed 2. D/c ASA, repeat echocardiogram in 1 month to assess pericardium vs cardiac MRI 3. Change Procardial XL 60 qd to Cardizem CD 120 qd, continue Vasotec 20 qd, Lasix 40 qd 4. DVT and GI prophylaxis 5. Further cardiovascular w/u including stress testing may be performed as outpatient after resolution of AE COPD 6. Thank you for consultative opportunity
--- NOTE | 2017-05-10 16:03 | PN ---
Teaching Attending Note Name of Resident: Darnell Wooten ATTENDING PHYSICIAN STATEMENT I saw and evaluated the patient. I reviewed the resident's note and discussed the case with the resident. I agree with the resident's findings and plan as documented. PULMONARY IMP COPD EXACERBATION ACUTE BRONCHITIS PERICARDIAL HEMATOMA/MASS HTN GERD PLAN IV STEROIDS INHALED BRONCHODILATORS O2 ANTIBIOTICS YEARLY LOW DOSE CHEST CT FOR LUNG CANCER SCREENING PFTS OUTPATIENT DR VAUGHN
[2017-05-10] MEDS: INSULIN DETEMIR 100 UNITS/ML MDV SQ SCH (23:14)
[2017-05-10] MEDS: LATANOPROST 0.005% OPHTH SOLN 2.5ML BOTTLE OS SCH (23:20)
[2017-05-10] MEDS ORDERED: ALPRAZolam 0.25 MG TABLET PO ONE (23:45)
[2017-05-11] MEDS: methylPREDNISolone NA SUCC 40 MG/1 ML VIAL IVPB SCH ×3 (02:40→17:33)
--- NOTE | 2017-05-11 06:32 | PN ---
Progress Note (short form) - Note Progress Note: c/o left sided back pain. Vital Signs Period Temp Pulse Resp BP Sys/Gordon Pulse Ox Last 24 Hr 98.4 F-98.6 F 64-75 18-20 119-144/69-74 96-97 no thrush neck supple S1S2 RRR SM diffuse bilateral expiratory wheezing abd soft mild lower thoracic back tenderness on palpation no edema nonfocal neuro exam Echo with pericardial hematoma but normal LVSF Imp Acute COPD exacerbation Bronchitis -has been treated with iv steroids,medrol dose pack,zithromax since ~04.28.17 , has been on levaquin for past 4 days without improvement -she was diagnosed with rhinovirus infection NIDDM Obesity Smoking history-last use 2 weeks ago Pericardial hematoma Plan iv steroids po augmentin hold AC due to hematoma add flexeril for back pain consults greatly appreciated repeat echo in 1 month with cardiac w/up dc planning in next 1-2 days
[2017-05-11] MEDS: INSULIN SLIDING SCALE (NOVOLOG) 1 VIAL SQ SCH ×3 (06:40→16:30)
[2017-05-11] MEDS: GABAPENTIN 100 MG CAPSULE (FP) PO SCH ×3 (06:40→21:17)
[2017-05-11] MEDS: CYCLOBENZAPRINE HCL 10 MG TABLET (FP) PO PRN (06:51)
[2017-05-11 07:24] LABS: MCHC 33.7 g/dl (32.0-36.0); MEAN PLT VOLUME 8.3 fl (7.5-11.1); PLATELET COUNT 252 K/MM3 (134-434); WHITE BLOOD COUNT 16.5 K/mm3 (4.0-10.0)
[2017-05-11 07:36] LABS: ALBUMIN 3.3 g/dl (3.4-5.0); ALK PHOS 100 U/L (45-117); ANION GAP 7 (8-16); BILIRUBIN,TOTAL 0.3 mg/dL (0.2-1.0); CO2 27 mmol/L (21-32); CREATININE 1.1 mg/dL (0.55-1.02); GLUCOSE,RANDOM 249 mg/dL (74-106); SGOT/AST 11 U/L (15-37); SGPT/ALT 21 U/L (12-78); TOT PROT 6.3 g/dl (6.4-8.2)
[2017-05-11] MEDS: PANTOPRAZOLE 20 MG TABLET (FP) PO SCH (10:10)
[2017-05-11] MEDS: FLUoxetine HCL 20 MG CAPSULE (FP) PO SCH (10:10)
[2017-05-11] MEDS: ENALAPRIL MALEATE 10 MG TABLET (FP) PO SCH (10:10)
[2017-05-11] MEDS: AMOX TR/POT CLAV 875MG/125MG TABLETS (FP) PO SCH ×2 (10:10→17:33)
[2017-05-11] MEDS: FUROSEMIDE 40 MG TABLET (FP) PO SCH (10:10)
[2017-05-11] MEDS: DORZOLAMIDE 2% HCL OPHTHALMIC SOLUTION 10 ML BOTTLE OU SCH ×2 (10:13→21:21)
[2017-05-11] MEDS: BUDESONIDE/FORMETEROL FUMARATE 80/4.5 mcg INHALER IH SCH ×2 (10:13→21:18)
[2017-05-11] MEDS: TIMOLOL 0.5% OPHTHALMIC SOL 5 ML BOTTLE OU SCH ×3 (10:14→21:25)
[2017-05-11] MEDS: ACLIDINIUM BROMIDE 400 MCG/INH AERO.POWD IH SCH ×2 (10:14→21:18)
[2017-05-11] MEDS: ALPRAZolam 2 MG TABLET PO PRN ×2 (10:31→22:38)
--- NOTE | 2017-05-11 13:52 | PN ---
Progress Note, Physician - Current Medication List Current Medications: Active Medications Acetaminophen (Tylenol -) 650 mg PO Q4H PRN PRN Reason: FEVER OR PAIN Last Admin: 05/11/17 06:39 Dose: 650 mg Aclidinium [place] (Tudorza -) 1 puff IH BID [facility] Last Admin: 05/11/17 10:14 Dose: 1 puff Albuterol Sulfate (Ventolin 0.083% Nebulizer Soln -) 1 amp NEB Q4H PRN PRN Reason: Dyspnea Alprazolam (Xanax -) 1 mg PO TID PRN PRN Reason: ANXIETY Last Admin: 05/11/17 10:31 Dose: 1 mg Amoxicillin/Clavulanate Potassium (Augmentin - 875mg Tablet) 1 tab PO BID@0800, 1730 [facility] Last Admin: 05/11/17 10:10 Dose: 1 tab Budesonide/Formoterol Fumarate (Symbicort 80/4.5mcg -) 2 puff IH BID [facility] Last Admin: 05/11/17 10:13 Dose: 2 puff Cyclobenzaprine HCl (Flexeril -) 10 mg PO TID PRN PRN Reason: MUSCLE SPASMS Stop: 05/13/17 23:59 Last Admin: 05/11/17 06:51 Dose: 10 mg Diltiazem HCl (Cardizem Cd -) 120 mg PO DAILY [facility] Last Admin: 05/11/17 10:11 Dose: 120 mg Dorzolamide HCl (Trusopt 2%) 1 drop OU BID [facility] Last Admin: 05/11/17 10:13 Dose: 1 drop Enalapril Maleate (Vasotec -) 20 mg PO DAILY [facility] Last Admin: 05/11/17 10:10 Dose: 20 mg Fluoxetine HCl (Prozac -) 40 mg PO DAILY [facility] Last Admin: 05/11/17 10:10 Dose: 40 mg Furosemide (Lasix -) 40 mg PO DAILY [facility] Last Admin: 05/11/17 10:10 Dose: 40 mg Gabapentin (Neurontin -) 100 mg PO TID [facility] Last Admin: 05/11/17 06:40 Dose: 100 mg Insulin Aspart (Novolog Vial Sliding Scale -) 1 vial SQ TIDAC [facility] PRN Reason: Protocol Last Admin: 05/11/17 11:33 Dose: 6 unit Insulin Detemir (Levemir Vial) 10 units SQ HS [facility] Last Admin: 05/10/17 23:14 Dose: 10 units Latanoprost (Xalatan 0.005% Eye Drops -) 1 drop OS HS [facility] Last Admin: 05/10/17 23:20 Dose: 1 drop Methylprednisolone Sodium Succinate (Solu-Medrol -) 40 mg IVPB Q8H-IV [facility] Last Admin: 05/11/17 10:11 Dose: 40 mg Pantoprazole Sodium (Protonix -) 20 mg PO DAILY [facility] Last Admin: 05/11/17 10:10 Dose: 20 mg Timolol Maleate (Timoptic 0.5%) 1 drop OU BID [facility] Last Admin: 05/11/17 10:14 Dose: Not Given - Objective Vital Signs: Vital Signs Temperature 98.2 F 05/11/17 08:32 Pulse Rate 55 L 05/11/17 08:32 Respiratory Rate 17 05/11/17 08:32 Blood Pressure 140/66 05/11/17 08:32 O2 Sat by Pulse Oximetry (%) 96 05/11/17 09:00 Labs: CBC, BMP 05/11/17 06:00 05/11/17 06:00
--- NOTE | 2017-05-11 13:58 | PN ---
Progress Note, Physician Chief Complaint: Events noted Complains of productive cough and shortness of breath History of Present Illness: Patient was seen and examined. Awake and alert. Chart was reviewed Denies chest pain or palpitations Complains of cough and SOB, although improving - Current Medication List Current Medications: Active Medications Acetaminophen (Tylenol -) 650 mg PO Q4H PRN PRN Reason: FEVER OR PAIN Last Admin: 05/11/17 06:39 Dose: 650 mg Aclidinium [place] (Tudorza -) 1 puff IH BID [facility] Last Admin: 05/11/17 10:14 Dose: 1 puff Albuterol Sulfate (Ventolin 0.083% Nebulizer Soln -) 1 amp NEB Q4H PRN PRN Reason: Dyspnea Alprazolam (Xanax -) 1 mg PO TID PRN PRN Reason: ANXIETY Last Admin: 05/11/17 10:31 Dose: 1 mg Amoxicillin/Clavulanate Potassium (Augmentin - 875mg Tablet) 1 tab PO BID@0800, 1730 [facility] Last Admin: 05/11/17 10:10 Dose: 1 tab Budesonide/Formoterol Fumarate (Symbicort 80/4.5mcg -) 2 puff IH BID [facility] Last Admin: 05/11/17 10:13 Dose: 2 puff Cyclobenzaprine HCl (Flexeril -) 10 mg PO TID PRN PRN Reason: MUSCLE SPASMS Stop: 05/13/17 23:59 Last Admin: 05/11/17 06:51 Dose: 10 mg Diltiazem HCl (Cardizem Cd -) 120 mg PO DAILY [facility] Last Admin: 05/11/17 10:11 Dose: 120 mg Dorzolamide HCl (Trusopt 2%) 1 drop OU BID [facility] Last Admin: 05/11/17 10:13 Dose: 1 drop Enalapril Maleate (Vasotec -) 20 mg PO DAILY [facility] Last Admin: 05/11/17 10:10 Dose: 20 mg Fluoxetine HCl (Prozac -) 40 mg PO DAILY [facility] Last Admin: 05/11/17 10:10 Dose: 40 mg Furosemide (Lasix -) 40 mg PO DAILY [facility] Last Admin: 05/11/17 10:10 Dose: 40 mg Gabapentin (Neurontin -) 100 mg PO TID [facility] Last Admin: 05/11/17 06:40 Dose: 100 mg Insulin Aspart (Novolog Vial Sliding Scale -) 1 vial SQ TIDAC [facility] PRN Reason: Protocol Last Admin: 05/11/17 11:33 Dose: 6 unit Insulin Detemir (Levemir Vial) 10 units SQ [facility] Last Admin: 05/10/17 23:14 Dose: 10 units Latanoprost (Xalatan 0.005% Eye Drops -) 1 drop OS HS [facility] Last Admin: 05/10/17 23:20 Dose: 1 drop Methylprednisolone Sodium Succinate (Solu-Medrol -) 40 mg IVPB Q8H-IV [facility] Last Admin: 05/11/17 10:11 Dose: 40 mg Pantoprazole Sodium (Protonix -) 20 mg PO DAILY [facility] Last Admin: 05/11/17 10:10 Dose: 20 mg Timolol Maleate (Timoptic 0.5%) 1 drop OU BID [facility] Last Admin: 05/11/17 10:14 Dose: Not Given - Objective Vital Signs: Vital Signs Temperature 98.2 F 05/11/17 08:32 Pulse Rate 55 L 05/11/17 08:32 Respiratory Rate 17 05/11/17 08:32 Blood Pressure 140/66 05/11/17 08:32 O2 Sat by Pulse Oximetry (%) 96 05/11/17 09:00 Neck: Yes: Supple Cardiovascular: Yes: Regular Rate and Rhythm, S1, S2. No: Murmur Respiratory: Yes: Diminished, Rhonchi Gastrointestinal: Yes: Normal Bowel Sounds, Soft. No: Tenderness Edema: No Additional Findings/Remarks: Review of System HEENT: No headache, photophobia, blurring of vision CARD: No chest pain, palpitations, (+) SOB RESP: (+) cough, sputum production, (-) hemoptysis ABD: No nausea, vomiting, diarrhea, abdominal pain, melena, hematemesis MUSC: No joint pains UROL: No urinary symptoms NEURO: No seizure, syncope Labs: CBC, BMP 05/11/17 06:00 05/11/17 06:00 Problem List - Problems (1) Atypical chest pain Code(s): R07.89 - OTHER CHEST PAIN (2) Leukocytosis Code(s): D72.829 - ELEVATED WHITE BLOOD CELL COUNT, UNSPECIFIED Qualifiers: Leukocytosis type: unspecified Qualified Code(s): D72.829 - Elevated white blood cell count, unspecified (3) Mitral valve prolapse syndrome Code(s): I34.1 - NONRHEUMATIC MITRAL (VALVE) PROLAPSE (4) Pericardial hematoma Code(s): I31.2 - HEMOPERICARDIUM, NOT ELSEWHERE CLASSIFIED (5) COPD (chronic obstructive pulmonary disease) with emphysema Code(s): J43.9 - EMPHYSEMA, UNSPECIFIED Qualifiers: Emphysema type: unspecified Qualified Code(s): J43.9 - Emphysema, unspecified (6) HTN (hypertension) Code(s): I10 - ESSENTIAL (PRIMARY) HYPERTENSION Qualifiers: Hypertension type: essential hypertension Qualified Code(s): I10 - Essential (primary) hypertension (7) Type 2 diabetes mellitus Code(s): E11.9 - TYPE 2 DIABETES MELLITUS WITHOUT COMPLICATIONS Qualifiers: Diabetes mellitus complication status: without complication Diabetes mellitus care home insulin use: with care home use Qualified Code(s): E11.9 - Type 2 diabetes mellitus without complications Assessment/Plan 1. Acute COPD exacerbation and acute bronchitis 2. Atypical chest pain syndrome 3. Mitral valve prolapse syndrome 4. Suspect pericardial hematoma, clinical correlation recommended 5. Type 2 DM 6. Possible OSAS 7. Former tobacco dependence 8. HTN/HCVD 9. Diastolic dysfunction PLAN: 1. Continue IV steroids, bronchodilators, empric antibiotics and O2 2. Transthoricic echocardiogram in 1 month to assess pericardium again. If still suspicious for mass or hematoma, consider cardiac MR 3. Continue Cardizem CD 120 qd, Vasotec 20 qd and Lasix 40 qd 4. DVT and GI prophylaxis 5. Further cardiovascular w/u including stress testing may be performed as outpatient after resolution of COPD exacerbation Further plans are to follow Orlando Ontiveros MD
--- NOTE | 2017-05-11 15:15 | PN ---
Physical Exam: SUBJECTIVE: Patient seen and examined by me - No significant improvement in clinical status. Still with productive cough and wheezing. Dyspnea on exertion. - Endorse L sided mid-axillary pain, worsened by laying down. Overnight deep chest pain, w/o radiation, similar to chronic CP patient has when sleeping. Pain described as deep, with no radiation, not positionally dependent, with no sensation of tightness. - Pt appears in some distress due to continue CP, chills and cough. Other updates: - WBC uptrending - Blood cx, urine cx pending OBJECTIVE: Vital Signs Period Temp Pulse Resp BP Sys/Gordon Pulse Ox Last 24 Hr 98.2 F-98.6 F 55-71 17-20 119-141/66-74 96-96 GENERAL: Awake, alert, and fully oriented, in some mild distress. Obese. HEAD: Normal with no signs of trauma. No lymphadenopathy EYES: sclera anicteric, conjunctiva clear. No lid lag. EARS, NOSE, THROAT: Ears normal, mild congestion in nares NECK: supple without lymphadenopathy, JVD, or masses. LUNGS: Diffuse rales throughout all lung hassan. Prominent inspiratory/ expiratory wheeze. No accessory muscle use. HEART: Regular rate and rhythm, normal S1 and S2. Grade III/ blowing systolic murmur appreciable at RUSB and apex. ABDOMEN: Soft, nontender, globular abdomen. Normoactive bowel sounds, no guarding, no rebound, no masses. No hepatomegaly or splenomegaly. Bilateral ecchymoses on lower abdomen. MUSCULOSKELETAL: No bony deformities or tenderness. No CVA tenderness. UPPER EXTREMITIES: 2+ pulses, warm, well-perfused. No cyanosis. No clubbing. Cap refill <2 seconds. No peripheral edema. Possible spooning of nail-bed. LOWER EXTREMITIES: 2+ pulses, warm, well-perfused. No calf tenderness. 1+ non- pitting edema bilaterally. Wearing compression stockings Laboratory Results - last 24 hr 05/10/17 05/10/17 05/11/17 17:12 23:13 06:00 WBC 16.5 H D RBC 4.77 Hgb 14.3 Hct 42.4 MCV 89.0 MCH 30.0 MCHC 33.7 RDW 12.0 Plt Count 252 MPV 8.3 Sodium Potassium Chloride Carbon Dioxide Anion Gap BUN Creatinine Creat Clearance w eGFR POC Glucometer 406 265 Random Glucose Calcium Total Bilirubin AST ALT Alkaline Phosphatase Total Protein Albumin 05/11/17 05/11/17 06:00 06:35 WBC RBC Hgb Hct MCV MCH MCHC RDW Plt Count MPV Sodium 138 Potassium 4.7 Chloride 104 Carbon Dioxide 27 Anion Gap 7 L BUN 22 H D Creatinine 1.1 H Creat Clearance w eGFR 50.50 POC Glucometer 240 Random Glucose 249 H Calcium 9.0 Total Bilirubin 0.3 AST 11 L D ALT 21 Alkaline Phosphatase 100 Total Protein 6.3 L Albumin 3.3 L Active Medications Generic Name Dose Route Start Last Admin Trade Name Freq PRN Reason Stop Dose Admin Acetaminophen 650 mg 05/10/17 07:22 05/11/17 06:39 Tylenol - PO 650 mg Q4H PRN Administration FEVER OR PAIN Aclidinium [place] 1 puff 05/09/17 22:00 05/11/17 10:14 Tudorza - IH 1 puff BID [facility] Administration Albuterol Sulfate 1 amp 05/09/17 10:46 Ventolin 0.083% Nebulizer Soln - NEB Q4H PRN Dyspnea Alprazolam 1 mg 05/11/17 06:27 05/11/17 10:31 Xanax - PO 1 mg TID PRN Administration ANXIETY Amoxicillin/Clavulanate Potassium 1 tab 05/10/17 08:00 05/11/17 10:10 Augmentin - 875mg Tablet PO 1 tab BID@0800,1730 [facility] Administration Budesonide/Formoterol Fumarate 2 puff 05/09/17 22:00 05/11/17 10:13 Symbicort 80/4.5mcg - IH 2 puff BID [facility] Administration Cyclobenzaprine HCl 10 mg 05/11/17 06:28 05/11/17 06:51 Flexeril - PO 05/13/17 23:59 10 mg TID PRN Administration MUSCLE SPASMS Diltiazem HCl 120 mg 05/11/17 10:00 05/11/17 10:11 Cardizem Cd - PO 120 mg DAILY [facility] Administration Dorzolamide HCl 1 drop 05/09/17 22:00 05/11/17 10:13 Trusopt 2% OU 1 drop BID [facility] Administration Enalapril Maleate 20 mg 05/10/17 10:00 05/11/17 10:10 Vasotec - PO 20 mg DAILY [facility] Administration Fluoxetine HCl 40 mg 05/10/17 10:00 05/11/17 10:10 Prozac - PO 40 mg DAILY [facility] Administration Furosemide 40 mg 05/10/17 10:00 05/11/17 10:10 Lasix - PO 40 mg DAILY [facility] Administration Gabapentin 100 mg 05/09/17 14:00 05/11/17 06:40 Neurontin - PO 100 mg TID [facility] Administration Insulin Aspart 1 vial 05/10/17 07:00 05/11/17 11:33 Novolog Vial Sliding Scale - SQ 6 unit TIDAC [facility] Administration Protocol Insulin Detemir 10 units 05/10/17 22:00 05/10/17 23:14 Levemir Vial SQ 10 units HS [facility] Administration Latanoprost 1 drop 05/09/17 22:00 05/10/17 23:20 Xalatan 0.005% Eye Drops - OS 1 drop HS [facility] Administration Methylprednisolone Sodium Succinate 40 mg 05/10/17 10:00 05/11/17 10:11 Solu-Medrol - IVPB 40 mg Q8H-IV [facility] Administration Pantoprazole Sodium 20 mg 05/10/17 10:00 05/11/17 10:10 Protonix - PO 20 mg DAILY [facility] Administration Timolol Maleate 1 drop 05/09/17 22:00 05/11/17 10:14 Timoptic 0.5% OU Not Given BID [facility] ASSESSMENT/PLAN: Assessment: 62 yo woman w/ pmh of COPD, GERD, HTN and DM, who presented to the ED with 1.5 weeks of worsening cough and SOB after viral URI, now w/ suspected COPD exacerbation/possible PNA. Physical exam notable for diffuse rhonchi and inspiratory/expiratory wheezing across all lung hassan. Labs and studies notable for unremarkable CT scan, pericardial hematoma on Echo, and elevated WBC. Pt with little improvement clinically on inhaled brochodilators, tudorza, steroids. Consider coverage for CAP PNA/URI given uptrending WBC and fever/ chills. Pt will require f/u outpatient management of COPD for symptom control. Plan: #COPD exacerbation: - Continue inhaled bronchodilators - Increase symbicort to 160 mcg - Increase Solumedrol 40mg Q6h - Tudorza 1 puff daily - O2 NC PRN - Recommend yearly CT scan screening - Outpatient PFTs Possible PNA/URI - Abx for CAP coverage - F/u cultures - Trend fever curve. Monitor for sign of infection - Consider sputum culture #Chest pain: - Cardiology following - EKG - PPI #Pericardial hematoma - F/u ECHO in 1 month - Consider P HTN work-up given CT findings Marshall Wooten MD, PGY1 Plan to be discussed with attending, Dr. Mai. Problem List - Problems (1) Atypical chest pain Code(s): R07.89 - OTHER CHEST PAIN (2) Mitral valve prolapse syndrome Code(s): I34.1 - NONRHEUMATIC MITRAL (VALVE) PROLAPSE (3) Pericardial hematoma Code(s): I31.2 - HEMOPERICARDIUM, NOT ELSEWHERE CLASSIFIED (4) COPD (chronic obstructive pulmonary disease) with emphysema Code(s): J43.9 - EMPHYSEMA, UNSPECIFIED Qualifiers: Emphysema type: unspecified Qualified Code(s): J43.9 - Emphysema, unspecified Visit type - Emergency Visit Emergency Visit: No - New Patient This patient is new to me today: No - Critical Care Critical Care patient: No
--- NOTE | 2017-05-11 16:18 | PN ---
Teaching Attending Note Name of Resident: Darnell Wooten ATTENDING PHYSICIAN STATEMENT I saw and evaluated the patient. I reviewed the resident's note and discussed the case with the resident. I agree with the resident's findings and plan as documented. SUBJECTIVE: Breathing feels slightly better today. No change in the left posterior pleuritic type discomfort with cough and movement. Intake & Output 05/08/17 05/09/17 05/10/17 05/11/17 23:59 23:59 23:59 23:59 Intake Total 540 600 Balance 540 600 Weight 210 lb 205 lb Last Vital Signs Temp Pulse Resp BP Pulse Ox 98.7 F 60 18 129/56 96 05/11/17 15:06 05/11/17 15:06 05/11/17 15:06 05/11/17 15:06 05/11/17 09:00 Active Medications Acetaminophen (Tylenol -) 650 mg PO Q4H PRN PRN Reason: FEVER OR PAIN Last Admin: 05/11/17 06:39 Dose: 650 mg Aclidinium [place] (Tudorza -) 1 puff IH BID [facility] Last Admin: 05/11/17 10:14 Dose: 1 puff Albuterol Sulfate (Ventolin 0.083% Nebulizer Soln -) 1 amp NEB Q4H PRN PRN Reason: Dyspnea Alprazolam (Xanax -) 1 mg PO TID PRN PRN Reason: ANXIETY Last Admin: 05/11/17 10:31 Dose: 1 mg Amoxicillin/Clavulanate Potassium (Augmentin - 875mg Tablet) 1 tab PO BID@0800, 1730 [facility] Last Admin: 05/11/17 10:10 Dose: 1 tab Budesonide/Formoterol Fumarate (Symbicort 80/4.5mcg -) 2 puff IH BID [facility] Last Admin: 05/11/17 10:13 Dose: 2 puff Cyclobenzaprine HCl (Flexeril -) 10 mg PO TID PRN PRN Reason: MUSCLE SPASMS Stop: 05/13/17 23:59 Last Admin: 05/11/17 06:51 Dose: 10 mg Diltiazem HCl (Cardizem Cd -) 120 mg PO DAILY [facility] Last Admin: 05/11/17 10:11 Dose: 120 mg Dorzolamide HCl (Trusopt 2%) 1 drop OU BID [facility] Last Admin: 05/11/17 10:13 Dose: 1 drop Enalapril Maleate (Vasotec -) 20 mg PO DAILY [facility] Last Admin: 05/11/17 10:10 Dose: 20 mg Fluoxetine HCl (Prozac -) 40 mg PO DAILY [facility] Last Admin: 05/11/17 10:10 Dose: 40 mg Furosemide (Lasix -) 40 mg PO DAILY [facility] Last Admin: 05/11/17 10:10 Dose: 40 mg Gabapentin (Neurontin -) 100 mg PO TID [facility] Last Admin: 05/11/17 15:43 Dose: 100 mg Insulin Aspart (Novolog Vial Sliding Scale -) 1 vial SQ TIDAC [facility] PRN Reason: Protocol Last Admin: 05/11/17 11:33 Dose: 6 unit Insulin Detemir (Levemir Vial) 10 units SQ HS [facility] Last Admin: 05/10/17 23:14 Dose: 10 units Latanoprost (Xalatan 0.005% Eye Drops -) 1 drop OS HS [facility] Last Admin: 05/10/17 23:20 Dose: 1 drop Methylprednisolone Sodium Succinate (Solu-Medrol -) 40 mg IVPB Q8H-IV [facility] Last Admin: 05/11/17 10:11 Dose: 40 mg Pantoprazole Sodium (Protonix -) 20 mg PO DAILY [facility] Last Admin: 05/11/17 10:10 Dose: 20 mg Timolol Maleate (Timoptic 0.5%) 1 drop OU BID [facility] Last Admin: 05/11/17 10:14 Dose: Not Given GENERAL: Awake, alert, and fully oriented, NAD, Obese. HEAD: Normal with no signs of trauma. No lymphadenopathy EYES: (-) Pallor / Icterus EARS, NOSE, THROAT: Moist mucous membranes. NECK: supple without lymphadenopathy, JVD, or masses. LUNGS: Bilateral expiratory wheeze. No accessory muscle use. Scattered rhonchi HEART: Regular rate and rhythm, normal S1 and S2. Grade III/ blowing systolic murmur appreciable at RUSB and apex. ABDOMEN: Soft, nontender, (+) BS, obese. MUSCULOSKELETAL: No bony deformities or tenderness. No CVA tenderness. UPPER EXTREMITIES: 2+ pulses, warm, well-perfused. No cyanosis. No clubbing. LOWER EXTREMITIES: 2+ pulses, warm, well-perfused. No calf tenderness. 1+ non- pitting edema bilaterally. NEUROLOGICAL: Non-focal SKIN: Warm, dry, normal turgor, no rashes or lesions noted. Laboratory Results - last 24 hr 05/10/17 05/10/17 05/11/17 17:12 23:13 06:00 WBC 16.5 H D RBC 4.77 Hgb 14.3 Hct 42.4 MCV 89.0 MCH 30.0 MCHC 33.7 RDW 12.0 Plt Count 252 MPV 8.3 Sodium Potassium Chloride Carbon Dioxide Anion Gap BUN Creatinine Creat Clearance w eGFR POC Glucometer 406 265 Random Glucose Calcium Total Bilirubin AST ALT Alkaline Phosphatase Total Protein Albumin 05/11/17 05/11/17 05/11/17 06:00 06:35 11:29 WBC RBC Hgb Hct MCV MCH MCHC RDW Plt Count MPV Sodium 138 Potassium 4.7 Chloride 104 Carbon Dioxide 27 Anion Gap 7 L BUN 22 H D Creatinine 1.1 H Creat Clearance w eGFR 50.50 POC Glucometer 240 310 Random Glucose 249 H Calcium 9.0 Total Bilirubin 0.3 AST 11 L D ALT 21 Alkaline Phosphatase 100 Total Protein 6.3 L Albumin 3.3 L Problem List - Problems (1) Atypical chest pain Code(s): R07.89 - OTHER CHEST PAIN (2) Mitral valve prolapse syndrome Code(s): I34.1 - NONRHEUMATIC MITRAL (VALVE) PROLAPSE (3) Pericardial hematoma Code(s): I31.2 - HEMOPERICARDIUM, NOT ELSEWHERE CLASSIFIED (4) COPD (chronic obstructive pulmonary disease) with emphysema Code(s): J43.9 - EMPHYSEMA, UNSPECIFIED Qualifiers: Emphysema type: unspecified Qualified Code(s): J43.9 - Emphysema, unspecified PLAN: Medrol BD TX O2 as needed Symbicort Recommend yearly CT scan screening Outpatient PFTs Noted BX No smoking Will need follow up ECHO Should also be screened for Sleep Apnea (PAH) Dr Zhang
[2017-05-11] MEDS ORDERED: PT OWN MED DRAWER 7, Y5N ONE (20:59)
[2017-05-11] MEDS: INSULIN DETEMIR 100 UNITS/ML MDV SQ SCH (21:17)
[2017-05-11] MEDS: LATANOPROST 0.005% OPHTH SOLN 2.5ML BOTTLE OS SCH (21:18)
[2017-05-12] MEDS: methylPREDNISolone NA SUCC 40 MG/1 ML VIAL IVPB SCH ×3 (02:06→21:49)
[2017-05-12] MEDS: CYCLOBENZAPRINE HCL 10 MG TABLET (FP) PO PRN ×2 (02:13→22:26)
[2017-05-12] MEDS: INSULIN SLIDING SCALE (NOVOLOG) 1 VIAL SQ SCH ×3 (06:14→17:44)
[2017-05-12] MEDS: GABAPENTIN 100 MG CAPSULE (FP) PO SCH ×3 (06:14→21:49)
[2017-05-12 07:24] LABS: MCH 30.1 pg (25.7-33.7); MCHC 33.6 g/dl (32.0-36.0); MEAN CELL VOLUME 89.5 fl (80-96); MEAN PLT VOLUME 8.2 fl (7.5-11.1); PLATELET COUNT 248 K/MM3 (134-434); RDW 12.1 % (11.6-15.6); WHITE BLOOD COUNT 19.4 K/mm3 (4.0-10.0)
[2017-05-12 08:03] LABS: ALBUMIN 3.2 g/dl (3.4-5.0); ALK PHOS 112 U/L (45-117); ANION GAP 12 (8-16); BILIRUBIN,TOTAL 0.4 mg/dL (0.2-1.0); CALCIUM 8.7 mg/dL (8.5-10.1); CO2 25 mmol/L (21-32); CREATININE 1.3 mg/dL (0.55-1.02); SGOT/AST 9 U/L (15-37); SGPT/ALT 17 U/L (12-78)
[2017-05-12] MEDS: AMOX TR/POT CLAV 875MG/125MG TABLETS (FP) PO SCH ×2 (08:18→17:44)
[2017-05-12 08:49] LABS: GLUCOSE,RANDOM 388 mg/dL (74-106)
[2017-05-12] MEDS ORDERED: PT OWN MED DRAWER 7, Y5N ONE ×2 (09:11→20:45)
[2017-05-12] MEDS: PANTOPRAZOLE 20 MG TABLET (FP) PO SCH (09:15)
[2017-05-12] MEDS: ENALAPRIL MALEATE 10 MG TABLET (FP) PO SCH (09:15)
[2017-05-12] MEDS: FUROSEMIDE 40 MG TABLET (FP) PO SCH (09:15)
[2017-05-12] MEDS: FLUoxetine HCL 20 MG CAPSULE (FP) PO SCH (09:15)
[2017-05-12] MEDS: TIMOLOL 0.5% OPHTHALMIC SOL 5 ML BOTTLE OU SCH ×2 (09:16→21:51)
[2017-05-12] MEDS: DORZOLAMIDE 2% HCL OPHTHALMIC SOLUTION 10 ML BOTTLE OU SCH ×2 (09:17→21:50)
[2017-05-12] MEDS: ACLIDINIUM BROMIDE 400 MCG/INH AERO.POWD IH SCH ×2 (09:18→21:49)
[2017-05-12] MEDS: BUDESONIDE/FORMETEROL FUMARATE 80/4.5 mcg INHALER IH SCH ×2 (09:18→21:50)
[2017-05-12] MEDS ORDERED: guaiFENesin 200 MG/10 ML 10 ML UNIT-DOSE CUPS PO PRN (09:34)
[2017-05-12] MEDS ORDERED: INSULIN DETEMIR 100 UNITS/ML MDV SQ ONE ×2 (12:16→22:45)
--- NOTE | 2017-05-12 14:58 | PN ---
Progress Note (short form) - Note Progress Note: c/o left sided back pain/pleuritic chest pain. CBC, BMP 05/12/17 06:00 05/12/17 06:00 no thrush neck supple S1S2 RRR SM diffuse bilateral expiratory wheezing on deep breathing, no wheezing at rest abd soft mild lower thoracic back tenderness on palpation no edema non focal neuro exam Echo with pericardial hematoma but normal LVSF Imp Acute COPD exacerbation Bronchitis NIDDM Obesity Smoking history-last use 2 weeks ago Pericardial hematoma Plan iv steroids-taper today po augmentin resume metformin while on steroids hold AC due to hematoma consults greatly appreciated repeat echo in 1 month with cardiac w/up dc planning tomorrow
--- NOTE | 2017-05-12 15:11 | PN ---
Progress Note, Physician History of Present Illness: Dyspnea slowly improving. Light-headed since change Procardia XL to Cardizem CD. - Current Medication List Current Medications: Active Medications Acetaminophen (Tylenol -) 650 mg PO Q4H PRN PRN Reason: FEVER OR PAIN Last Admin: 05/11/17 06:39 Dose: 650 mg Aclidinium [place] (Tudorza -) 1 puff IH BID [facility] Last Admin: 05/12/17 09:18 Dose: 1 puff Albuterol Sulfate (Ventolin 0.083% Nebulizer Soln -) 1 amp NEB Q4H PRN PRN Reason: Dyspnea Last Admin: 05/12/17 12:02 Dose: 1 amp Alprazolam (Xanax -) 1 mg PO TID PRN PRN Reason: ANXIETY Last Admin: 05/11/17 22:38 Dose: 1 mg Amoxicillin/Clavulanate Potassium (Augmentin - 875mg Tablet) 1 tab PO BID@0800, 1730 [facility] Last Admin: 05/12/17 08:18 Dose: 1 tab Budesonide/Formoterol Fumarate (Symbicort 80/4.5mcg -) 2 puff IH BID [facility] Last Admin: 05/12/17 09:18 Dose: 2 puff Cyclobenzaprine HCl (Flexeril -) 10 mg PO TID PRN PRN Reason: MUSCLE SPASMS Stop: 05/13/17 23:59 Last Admin: 05/12/17 02:13 Dose: 10 mg Diltiazem HCl (Cardizem Cd -) 120 mg PO DAILY [facility] Last Admin: 05/12/17 09:16 Dose: 120 mg Dorzolamide HCl (Trusopt 2%) 1 drop OU BID [facility] Last Admin: 05/12/17 09:17 Dose: 1 drop Enalapril Maleate (Vasotec -) 20 mg PO DAILY [facility] Last Admin: 05/12/17 09:15 Dose: 20 mg Fluoxetine HCl (Prozac -) 40 mg PO DAILY [facility] Last Admin: 05/12/17 09:15 Dose: 40 mg Furosemide (Lasix -) 40 mg PO DAILY [facility] Last Admin: 05/12/17 09:15 Dose: 40 mg Gabapentin (Neurontin -) 100 mg PO TID [facility] Last Admin: 05/12/17 13:45 Dose: 100 mg Guaifenesin (Robitussin -) 10 ml PO Q6H PRN PRN Reason: COUGH Insulin Aspart (Novolog Vial Sliding Scale -) 1 vial SQ TIDAC [facility] PRN Reason: Protocol Last Admin: 05/12/17 12:05 Dose: 10 unit Insulin Detemir (Levemir Vial) 10 units SQ BID [facility] Latanoprost (Xalatan 0.005% Eye Drops -) 1 drop OS HS [facility] Last Admin: 05/11/17 21:18 Dose: 1 drop Metformin HCl (Glucophage -) 1,000 mg PO BID@0700,1630 [facility] Methylprednisolone Sodium Succinate (Solu-Medrol -) 40 mg IVPB Q12H [facility] Pantoprazole Sodium (Protonix -) 20 mg PO DAILY [facility] Last Admin: 05/12/17 09:15 Dose: 20 mg Timolol Maleate (Timoptic 0.5%) 1 drop OU BID [facility] Last Admin: 05/12/17 09:16 Dose: 1 drop - Objective Vital Signs: Vital Signs Temperature 98.3 F 05/12/17 14:56 Pulse Rate 63 05/12/17 14:56 Respiratory Rate 18 05/12/17 14:56 Blood Pressure 117/54 05/12/17 14:56 O2 Sat by Pulse Oximetry (%) 98 05/12/17 12:02 Constitutional: Yes: No Distress, Calm Neck: Yes: Supple Cardiovascular: Yes: Regular Rate and Rhythm Respiratory: Yes: Regular, Diminished, Wheezes Gastrointestinal: Yes: Normal Bowel Sounds, Soft Edema: No Labs: CBC, BMP 05/12/17 06:00 05/12/17 06:00 Problem List - Problems (1) COPD (chronic obstructive pulmonary disease) with emphysema Code(s): J43.9 - EMPHYSEMA, UNSPECIFIED Qualifiers: Emphysema type: unspecified Qualified Code(s): J43.9 - Emphysema, unspecified (2) Obesity Code(s): E66.9 - OBESITY, UNSPECIFIED (3) HTN (hypertension) Code(s): I10 - ESSENTIAL (PRIMARY) HYPERTENSION Qualifiers: Hypertension type: essential hypertension Qualified Code(s): I10 - Essential (primary) hypertension (4) Type 2 diabetes mellitus Code(s): E11.9 - TYPE 2 DIABETES MELLITUS WITHOUT COMPLICATIONS Qualifiers: Diabetes mellitus complication status: without complication Diabetes mellitus terminal manager insulin use: with terminal manager use Qualified Code(s): E11.9 - Type 2 diabetes mellitus without complications (5) Mitral valve prolapse syndrome Code(s): I34.1 - NONRHEUMATIC MITRAL (VALVE) PROLAPSE (6) Atypical chest pain Code(s): R07.89 - OTHER CHEST PAIN (7) Pericardial hematoma Code(s): I31.2 - HEMOPERICARDIUM, NOT ELSEWHERE CLASSIFIED (8) Acute kidney injury Code(s): N17.9 - ACUTE KIDNEY FAILURE, UNSPECIFIED (9) Leukocytosis Code(s): D72.829 - ELEVATED WHITE BLOOD CELL COUNT, UNSPECIFIED Qualifiers: Leukocytosis type: unspecified Qualified Code(s): D72.829 - Elevated white blood cell count, unspecified Assessment/Plan 1. Acute COPD exacerbation and acute bronchitis resolving 2. Atypical chest pain syndrome 3. Mitral valve prolapse syndrome 4. Suspect pericardial hematoma, clinical correlation recommended 5. Type 2 DM 6. Possible OSAS 7. Former tobacco dependence 8. HTN/HCVD 9. Diastolic dysfunction 10. ANNITA 11. Leukocytosis referable to steroids PLAN: 1. Taper IV->oral steroids, bronchodilators, empric antibiotics and O2 2. Transthoricic echocardiogram in 1 month to assess pericardium again. If still suspicious for mass or hematoma, consider cardiac MR 3. Change Cardizem CD 120 qd back to Procardia XL 60 qd, Vasotec 20 qd and d/c Lasix 40 qd pending renal fxn stabilization 4. DVT and GI prophylaxis 5. Further cardiovascular w/u including stress testing may be performed as outpatient after resolution of COPD exacerbation
--- NOTE | 2017-05-12 15:55 | PN ---
Teaching Attending Note Name of Resident: Darnell Wooten ATTENDING PHYSICIAN STATEMENT I saw and evaluated the patient. I reviewed the resident's note and discussed the case with the resident. I agree with the resident's findings and plan as documented. PULMONARY IMP COPD EXACERBATION IMPROVING ACUTE BRONCHITIS PERICARDIAL HEMATOMA/MASS HTN GERD ?POONAM PLAN STEROIDS INHALED BRONCHODILATORS O2 ANTIBIOTICS YEARLY LOW DOSE CHEST CT FOR LUNG CANCER SCREENING PFTS OUTPATIENT SLEEP STUDIES OUTPATIENT DR VAUGHN Problem List - Problems (1) Atypical chest pain Code(s): R07.89 - OTHER CHEST PAIN (2) Pericardial hematoma Code(s): I31.2 - HEMOPERICARDIUM, NOT ELSEWHERE CLASSIFIED (3) COPD (chronic obstructive pulmonary disease) with emphysema Code(s): J43.9 - EMPHYSEMA, UNSPECIFIED Qualifiers: Emphysema type: unspecified Qualified Code(s): J43.9 - Emphysema, unspecified (4) Nicotine dependence Code(s): F17.200 - NICOTINE DEPENDENCE, UNSPECIFIED, UNCOMPLICATED (5) Obesity Code(s): E66.9 - OBESITY, UNSPECIFIED (6) Type 2 diabetes mellitus Code(s): E11.9 - TYPE 2 DIABETES MELLITUS WITHOUT COMPLICATIONS Qualifiers: Diabetes mellitus complication status: without complication Diabetes mellitus shelter insulin use: with greenhouse grower use Qualified Code(s): E11.9 - Type 2 diabetes mellitus without complications
--- NOTE | 2017-05-12 17:35 | PN ---
Physical Exam: SUBJECTIVE: Patient seen and examined by me - Pt endorses improvement in cough and respiratory symptoms. Endorses feeling lightheaded since switching from Procardia XL to Cardizem. - Pt concerned about pericardial effusion on Echo and chest pain on exertion at home. Updates: - Uptrending WBC count (19.4 - 05/12) - urine and blood cx negative OBJECTIVE: Vital Signs Period Temp Pulse Resp BP Sys/Gordon Pulse Ox Last 24 Hr 98.2 F-98.9 F 58-69 18-22 117-157/54-78 97-98 GENERAL: Awake, alert, and fully oriented, in no acute distress. Obese. HEAD: Normal with no signs of trauma. No lymphadenopathy EYES: sclera anicteric, conjunctiva clear. No lid lag. LUNGS: Mild rales throughout all lung hassan. Mild inspiratory/expiratory wheeze. No accessory muscle use. HEART: Regular rate and rhythm, normal S1 and S2. Grade III/ blowing systolic murmur appreciable at RUSB and apex. ABDOMEN: Soft, nontender, globular abdomen. Normoactive bowel sounds, no guarding, no rebound, no masses. No hepatomegaly or splenomegaly. Bilateral ecchymoses on lower abdomen. MUSCULOSKELETAL: No bony deformities or tenderness. No CVA tenderness. UPPER EXTREMITIES: 2+ pulses, warm, well-perfused. No cyanosis. No clubbing. Cap refill <2 seconds. No peripheral edema. Possible spooning of nail-bed. LOWER EXTREMITIES: 2+ pulses, warm, well-perfused. No calf tenderness. 1+ non- pitting edema bilaterally. Wearing compression stockings Laboratory Results - last 24 hr 05/11/17 05/11/17 05/12/17 17:12 21:15 06:00 WBC 19.4 H RBC 4.64 Hgb 14.0 Hct 41.5 MCV 89.5 MCH 30.1 MCHC 33.6 RDW 12.1 Plt Count 248 MPV 8.2 Sodium Potassium Chloride Carbon Dioxide Anion Gap BUN Creatinine Creat Clearance w eGFR POC Glucometer 348 393 Random Glucose Calcium Total Bilirubin AST ALT Alkaline Phosphatase Total Protein Albumin 05/12/17 05/12/17 05/12/17 06:00 06:13 11:17 WBC RBC Hgb Hct MCV MCH MCHC RDW Plt Count MPV Sodium 137 Potassium 4.3 Chloride 100 Carbon Dioxide 25 Anion Gap 12 BUN 30 H D Creatinine 1.3 H Creat Clearance w eGFR 41.64 POC Glucometer 373 429 Random Glucose 388 H* D Calcium 8.7 Total Bilirubin 0.4 D AST 9 L ALT 17 Alkaline Phosphatase 112 Total Protein 6.0 L Albumin 3.2 L 05/12/17 11:57 WBC RBC Hgb Hct MCV MCH MCHC RDW Plt Count MPV Sodium Potassium Chloride Carbon Dioxide Anion Gap BUN Creatinine Creat Clearance w eGFR POC Glucometer 400 Random Glucose Calcium Total Bilirubin AST ALT Alkaline Phosphatase Total Protein Albumin Active Medications Generic Name Dose Route Start Last Admin Trade Name Freq PRN Reason Stop Dose Admin Acetaminophen 650 mg 05/10/17 07:22 05/11/17 06:39 Tylenol - PO 650 mg Q4H PRN Administration FEVER OR PAIN Aclidinium [place] 1 puff 05/09/17 22:00 05/12/17 09:18 Tudorza - IH 1 puff BID KENNY Administration Albuterol Sulfate 1 amp 05/09/17 10:46 05/12/17 12:02 Ventolin 0.083% Nebulizer Soln - NEB 1 amp Q4H PRN Administration Dyspnea Alprazolam 1 mg 05/11/17 06:27 05/11/17 22:38 Xanax - PO 1 mg TID PRN Administration ANXIETY Amoxicillin/Clavulanate Potassium 1 tab 05/10/17 08:00 05/12/17 08:18 Augmentin - 875mg Tablet PO 1 tab BID@0800,1730 K[facility] Administration Budesonide/Formoterol Fumarate 2 puff 05/09/17 22:00 05/12/17 09:18 Symbicort 80/4.5mcg - IH 2 puff BID [facility] Administration Cyclobenzaprine HCl 10 mg 05/11/17 06:28 05/12/17 02:13 Flexeril - PO 05/13/17 23:59 10 mg TID PRN Administration MUSCLE SPASMS Dorzolamide HCl 1 drop 05/09/17 22:00 05/12/17 09:17 Trusopt 2% OU 1 drop BID [facility] Administration Enalapril Maleate 20 mg 05/10/17 10:00 05/12/17 09:15 Vasotec - PO 20 mg DAILY [facility] Administration Fluoxetine HCl 40 mg 05/10/17 10:00 05/12/17 09:15 Prozac - PO 40 mg DAILY [facility] Administration Gabapentin 100 mg 05/09/17 14:00 05/12/17 13:45 Neurontin - PO 100 mg TID [facility] Administration Guaifenesin 10 ml 05/12/17 09:34 Robitussin - PO Q6H PRN COUGH Insulin Aspart 1 vial 05/10/17 07:00 05/12/17 12:05 Novolog Vial Sliding Scale - SQ 10 unit TIDAC [facility] Administration Protocol Insulin Detemir 10 units 05/12/17 22:00 Levemir Vial SQ BID [facility] Latanoprost 1 drop 05/09/17 22:00 05/11/17 21:18 Xalatan 0.005% Eye Drops - OS 1 drop HS [facility]NY Administration Metformin HCl 1,000 mg 05/12/17 16:30 Glucophage - PO BID@0700,1630 [facility] Methylprednisolone Sodium Succinate 40 mg 05/12/17 22:00 Solu-Medrol - IVPB BID [facility] Nifedipine 60 mg 05/13/17 10:00 Procardia Xl - PO DAILY [facility] Pantoprazole Sodium 20 mg 05/10/17 10:00 05/12/17 09:15 Protonix - PO 20 mg DAILY [facility] Administration Timolol Maleate 1 drop 05/09/17 22:00 05/12/17 09:16 Timoptic 0.5% OU 1 drop BID [facility] Administration ASSESSMENT/PLAN: Assessment: 62 yo woman w/ pmh of COPD, GERD, HTN and DM, who presented to the ED with 1.5 weeks of worsening cough and SOB after viral URI, now w/ suspected COPD exacerbation/possible PNA. Physical exam notable for improving rhonchi and wheezing. Studies notable for uptrending WBC and mild hypotension on cardizem. Pt improved slightly with cough and SOB on inhaled brochodilators, tudorza, steroids. Pt will require f/u outpatient management of COPD for symptom control and outpatient eval of possible stable angina. Plan: #COPD exacerbation: - Continue inhaled bronchodilators - symbicort 160 mcg - Solumedrol 40mg Q6h. Taper with improving condition. - Tudorza 1 puff daily - O2 NC PRN - Recommend yearly CT scan screening - Outpatient PFTs #Possible PNA/URI - Abx for CAP coverage - Trend fever curve. Monitor for sign of infection - Consider sputum culture #Chest pain: - Cardiology following - Outpatient eval for CAD, given fam hx and exertional angina - EKG - PPI #Pericardial hematoma - F/u Echo in 1 month - Consider P HTN work-up given CT findings Marshall Wooten MD, PGY1 Plan to be discussed with attending, Dr. Mai. Problem List - Problems (1) Atypical chest pain Code(s): R07.89 - OTHER CHEST PAIN (2) Mitral valve prolapse syndrome Code(s): I34.1 - NONRHEUMATIC MITRAL (VALVE) PROLAPSE (3) Pericardial hematoma Code(s): I31.2 - HEMOPERICARDIUM, NOT ELSEWHERE CLASSIFIED (4) COPD (chronic obstructive pulmonary disease) with emphysema Code(s): J43.9 - EMPHYSEMA, UNSPECIFIED Qualifiers: Emphysema type: unspecified Qualified Code(s): J43.9 - Emphysema, unspecified Visit type - Emergency Visit Emergency Visit: No - New Patient This patient is new to me today: No - Critical Care Critical Care patient: No
[2017-05-12] MEDS: metFORMIN HCL 500 MG TABLET (FP) PO SCH (17:45)
[2017-05-12] MEDS ORDERED: INSULIN (NOVOLOG) ASPART 100 UNITS/ML 10ML VIAL SQ ONE ×2 (18:15→22:45)
[2017-05-12] MEDS: LATANOPROST 0.005% OPHTH SOLN 2.5ML BOTTLE OS SCH (21:50)
[2017-05-12] MEDS: INSULIN DETEMIR 100 UNITS/ML MDV SQ SCH (21:51)
[2017-05-12] MEDS ORDERED: methylPREDNISolone NA SUCC 40 MG/1 ML VIAL IVPB SCH (22:00)
[2017-05-12] MEDS: ALPRAZolam 2 MG TABLET PO PRN (22:27)
[2017-05-13] MEDS: metFORMIN HCL 500 MG TABLET (FP) PO SCH ×2 (06:26→17:26)
[2017-05-13] MEDS: INSULIN SLIDING SCALE (NOVOLOG) 1 VIAL SQ SCH ×3 (06:26→17:26)
[2017-05-13] MEDS: GABAPENTIN 100 MG CAPSULE (FP) PO SCH ×3 (06:26→22:57)
[2017-05-13 07:31] LABS: BASOPHIL 0.1 % (0-2.0); MCH 29.7 pg (25.7-33.7); MCHC 33.2 g/dl (32.0-36.0); MEAN CELL VOLUME 89.3 fl (80-96); MEAN PLT VOLUME 8.5 fl (7.5-11.1); NEUTROPHILS 89.5 % (42.8-82.8); PLATELET COUNT 243 K/MM3 (134-434); RDW 12.4 % (11.6-15.6); WHITE BLOOD COUNT 18.3 K/mm3 (4.0-10.0)
[2017-05-13 07:47] LABS: ALBUMIN 3.1 g/dl (3.4-5.0); ANION GAP 12 (8-16); BILIRUBIN,TOTAL 0.5 mg/dL (0.2-1.0); CALCIUM 8.6 mg/dL (8.5-10.1); CO2 28 mmol/L (21-32); CREATININE 1.4 mg/dL (0.55-1.02); SGOT/AST 10 U/L (15-37); SGPT/ALT 20 U/L (12-78); TOT PROT 5.9 g/dl (6.4-8.2)
[2017-05-13 07:48] LABS: ALK PHOS 109 U/L (45-117)
[2017-05-13 07:50] LABS: GLUCOSE,RANDOM 309 mg/dL (74-106)
[2017-05-13] MEDS: AMOX TR/POT CLAV 875MG/125MG TABLETS (FP) PO SCH ×2 (08:44→17:26)
[2017-05-13] MEDS ORDERED: PT OWN MED DRAWER 7, Y5N ONE ×2 (10:03→22:23)
[2017-05-13] MEDS: ACLIDINIUM BROMIDE 400 MCG/INH AERO.POWD IH SCH ×2 (10:10→23:00)
[2017-05-13] MEDS: INSULIN DETEMIR 100 UNITS/ML MDV SQ SCH ×2 (10:10→22:58)
[2017-05-13] MEDS: ENALAPRIL MALEATE 10 MG TABLET (FP) PO SCH (10:10)
[2017-05-13] MEDS: BUDESONIDE/FORMETEROL FUMARATE 80/4.5 mcg INHALER IH SCH ×2 (10:10→22:58)
[2017-05-13] MEDS: PANTOPRAZOLE 20 MG TABLET (FP) PO SCH (10:11)
[2017-05-13] MEDS: FLUoxetine HCL 20 MG CAPSULE (FP) PO SCH (10:11)
--- NOTE | 2017-05-13 11:08 | PN ---
Progress Note (short form) - Note Progress Note: c/o severe stabbing chest pain 2 am today. Sugars are very high. CBC, BMP 05/13/17 06:00 05/13/17 06:00 no thrush neck supple S1S2 RRR SM no wheezing at rest, sounds better. abd soft no edema non focal neuro exam Echo with pericardial hematoma but normal LVSF Ct chest reviewed Imp Acute COPD exacerbation Bronchitis NIDDM-uncontrolled now on steroids Obesity Smoking history-last use 2 weeks ago Pericardial hematoma with chest pain now Acute renal insuff Plan will check one set cardiac enzyme and EKG switch to oral steroid iv hydration po augmentin resume metformin while on steroids hold AC due to hematoma Chest CT yearly repeat echo in 1 month with cardiac w/up dc planning tomorrow
[2017-05-13] MEDS ORDERED: SODIUM CHLORIDE 0.45% 1,000 ML IV SCH (11:15)
[2017-05-13 11:58] LABS: TROPONIN I 0.02 ng/ml (0.00-0.05)
--- NOTE | 2017-05-13 12:40 | PN ---
Teaching Attending Note Name of Resident: Darnell Wooten ATTENDING PHYSICIAN STATEMENT I saw and evaluated the patient. I reviewed the resident's note and discussed the case with the resident. I agree with the resident's findings and plan as documented. SUBJECTIVE: Breathing feels slightly better today. Still with some congested cough. Some improvement in left posterior pleuritic type discomfort that occurs with cough and movement. Intake & Output 05/10/17 05/11/17 05/12/17 05/13/17 23:59 23:59 23:59 23:59 Intake Total 600 1010 810 180 Balance 600 1010 810 180 Last Vital Signs Temp Pulse Resp BP Pulse Ox 98.3 F 58 L 20 130/72 94 L 05/13/17 06:00 05/13/17 06:00 05/13/17 06:00 05/13/17 06:00 05/12/17 21:00 Active Medications Acetaminophen (Tylenol -) 650 mg PO Q4H PRN PRN Reason: FEVER OR PAIN Last Admin: 05/11/17 06:39 Dose: 650 mg Aclidinium [place] (Tudorza -) 1 puff IH BID [facility] Last Admin: 05/13/17 10:10 Dose: 1 puff Albuterol Sulfate (Ventolin 0.083% Nebulizer Soln -) 1 amp NEB Q4H PRN PRN Reason: Dyspnea Last Admin: 05/12/17 12:02 Dose: 1 amp Alprazolam (Xanax -) 1 mg PO TID PRN PRN Reason: ANXIETY Last Admin: 05/12/17 22:27 Dose: 1 mg Amoxicillin/Clavulanate Potassium (Augmentin - 875mg Tablet) 1 tab PO BID@0800, 1730 [facility] Last Admin: 05/13/17 08:44 Dose: 1 tab Budesonide/Formoterol Fumarate (Symbicort 80/4.5mcg -) 2 puff IH BID [facility] Last Admin: 05/13/17 10:10 Dose: 2 puff Cyclobenzaprine HCl (Flexeril -) 10 mg PO TID PRN PRN Reason: MUSCLE SPASMS Stop: 05/13/17 23:59 Last Admin: 05/12/17 22:26 Dose: 10 mg Dorzolamide HCl (Trusopt 2%) 1 drop OU BID [facility] Last Admin: 05/12/17 21:50 Dose: 1 drop Enalapril Maleate (Vasotec -) 20 mg PO DAILY [facility] Last Admin: 05/13/17 10:10 Dose: 20 mg Fluoxetine HCl (Prozac -) 40 mg PO DAILY [facility] Last Admin: 05/13/17 10:11 Dose: 40 mg Gabapentin (Neurontin -) 100 mg PO TID [facility] Last Admin: 05/13/17 06:26 Dose: 100 mg Guaifenesin (Robitussin -) 10 ml PO Q6H PRN PRN Reason: COUGH Last Admin: 05/13/17 06:33 Dose: 10 ml Sodium Chloride (1/2 Normal Saline) 1,000 mls @ 75 mls/hr IV ASDIR [facility] Stop: 05/13/17 23:59 Last Admin: 05/13/17 12:12 Dose: 75 mls/hr Insulin Aspart (Novolog Vial Sliding Scale -) 1 vial SQ TIDAC [facility] PRN Reason: Protocol Last Admin: 05/13/17 12:30 Dose: 2 unit Insulin Detemir (Levemir Vial) 10 units SQ BID [facility] Last Admin: 05/13/17 10:10 Dose: 10 unit Latanoprost (Xalatan 0.005% Eye Drops -) 1 drop OS HS [facility] Last Admin: 05/12/17 21:50 Dose: 1 drop Metformin HCl (Glucophage -) 1,000 mg PO BID@0700,1630 [facility] Last Admin: 05/13/17 06:26 Dose: 1,000 mg Nifedipine (Procardia Xl -) 60 mg PO DAILY [facility] Pantoprazole Sodium (Protonix -) 20 mg PO DAILY [facility] Last Admin: 05/13/17 10:11 Dose: 20 mg Prednisone (Deltasone -) 40 mg PO DAILY [facility] Timolol Maleate (Timoptic 0.5%) 1 drop OU BID [facility] Last Admin: 05/12/17 21:51 Dose: Not Given GENERAL: Awake, alert, and fully oriented, NAD, Obese. HEAD: Normal with no signs of trauma. No lymphadenopathy EYES: (-) Pallor / Icterus EARS, NOSE, THROAT: Moist mucous membranes. NECK: supple without lymphadenopathy, JVD, or masses. LUNGS: No expiratory wheeze appreciated today. No accessory muscle use. Scattered rhonchi HEART: Regular rate and rhythm, normal S1 and S2. Grade III/ blowing systolic murmur appreciable at RUSB and apex. ABDOMEN: Soft, nontender, (+) BS, obese. MUSCULOSKELETAL: No bony deformities or tenderness. No CVA tenderness. UPPER EXTREMITIES: 2+ pulses, warm, well-perfused. No cyanosis. No clubbing. LOWER EXTREMITIES: 2+ pulses, warm, well-perfused. No calf tenderness. 1+ non- pitting edema bilaterally. NEUROLOGICAL: Non-focal SKIN: Warm, dry, normal turgor, no rashes or lesions noted. Laboratory Results - last 24 hr 05/12/17 05/12/17 05/13/17 17:37 21:48 00:48 WBC RBC Hgb Hct MCV MCH MCHC RDW Plt Count MPV Neutrophils % Lymphocytes % Monocytes % Eosinophils % Basophils % Sodium Potassium Chloride Carbon Dioxide Anion Gap BUN Creatinine Creat Clearance w eGFR POC Glucometer 420 473 323 Random Glucose Calcium Total Bilirubin AST ALT Alkaline Phosphatase Creatine Kinase Troponin I Total Protein Albumin 05/13/17 05/13/17 05/13/17 06:00 06:00 06:24 WBC 18.3 H RBC 4.57 Hgb 13.6 Hct 40.8 MCV 89.3 MCH 29.7 MCHC 33.2 RDW 12.4 Plt Count 243 MPV 8.5 Neutrophils % 89.5 H D Lymphocytes % 7.8 L D Monocytes % 2.6 L Eosinophils % 0.0 D Basophils % 0.1 Sodium 138 Potassium 4.2 Chloride 98 Carbon Dioxide 28 Anion Gap 12 BUN 39 H D Creatinine 1.4 H Creat Clearance w eGFR 38.23 POC Glucometer 279 Random Glucose 309 H* D Calcium 8.6 Total Bilirubin 0.5 D AST 10 L ALT 20 Alkaline Phosphatase 109 Creatine Kinase Troponin I Total Protein 5.9 L Albumin 3.1 L 05/13/17 11:15 WBC RBC Hgb Hct MCV MCH MCHC RDW Plt Count MPV Neutrophils % Lymphocytes % Monocytes % Eosinophils % Basophils % Sodium Potassium Chloride Carbon Dioxide Anion Gap BUN Creatinine Creat Clearance w eGFR POC Glucometer Random Glucose Calcium Total Bilirubin AST ALT Alkaline Phosphatase Creatine Kinase 30 Troponin I 0.02 Total Protein Albumin Problem List - Problems (1) Atypical chest pain Code(s): R07.89 - OTHER CHEST PAIN (2) Mitral valve prolapse syndrome Code(s): I34.1 - NONRHEUMATIC MITRAL (VALVE) PROLAPSE (3) Pericardial hematoma Code(s): I31.2 - HEMOPERICARDIUM, NOT ELSEWHERE CLASSIFIED (4) COPD (chronic obstructive pulmonary disease) with emphysema Code(s): J43.9 - EMPHYSEMA, UNSPECIFIED Qualifiers: Emphysema type: unspecified Qualified Code(s): J43.9 - Emphysema, unspecified PLAN: Agree with Prednisone BD TX O2 as needed Symbicort Outpatient PFTs Noted BX No smoking Will need follow up ECHO Should also be screened for Sleep Apnea (PAH) No Pulmonary contraindication for D/C Dr Zhang
--- NOTE | 2017-05-13 12:51 | PN ---
Progress Note, Physician History of Present Illness: Dyspnea slowly improving. Atypical sharp chest pain earlier today, none now. Has experienced similar sxs past 2 years. Light-headedness improved after switch from Cardizem back to Procardia XL. - Current Medication List Current Medications: Active Medications Acetaminophen (Tylenol -) 650 mg PO Q4H PRN PRN Reason: FEVER OR PAIN Last Admin: 05/11/17 06:39 Dose: 650 mg Aclidinium [place] (Tudorza -) 1 puff IH BID [facility] Last Admin: 05/13/17 10:10 Dose: 1 puff Albuterol Sulfate (Ventolin 0.083% Nebulizer Soln -) 1 amp NEB Q4H PRN PRN Reason: Dyspnea Last Admin: 05/12/17 12:02 Dose: 1 amp Alprazolam (Xanax -) 1 mg PO TID PRN PRN Reason: ANXIETY Last Admin: 05/12/17 22:27 Dose: 1 mg Amoxicillin/Clavulanate Potassium (Augmentin - 875mg Tablet) 1 tab PO BID@0800, 1730 [facility] Last Admin: 05/13/17 08:44 Dose: 1 tab Budesonide/Formoterol Fumarate (Symbicort 80/4.5mcg -) 2 puff IH BID [facility] Last Admin: 05/13/17 10:10 Dose: 2 puff Cyclobenzaprine HCl (Flexeril -) 10 mg PO TID PRN PRN Reason: MUSCLE SPASMS Stop: 05/13/17 23:59 Last Admin: 05/12/17 22:26 Dose: 10 mg Dorzolamide HCl (Trusopt 2%) 1 drop OU BID [facility] Last Admin: 05/12/17 21:50 Dose: 1 drop Enalapril Maleate (Vasotec -) 20 mg PO DAILY [facility] Last Admin: 05/13/17 10:10 Dose: 20 mg Fluoxetine HCl (Prozac -) 40 mg PO DAILY [facility] Last Admin: 05/13/17 10:11 Dose: 40 mg Gabapentin (Neurontin -) 100 mg PO TID [facility] Last Admin: 05/13/17 06:26 Dose: 100 mg Guaifenesin (Robitussin -) 10 ml PO Q6H PRN PRN Reason: COUGH Last Admin: 05/13/17 06:33 Dose: 10 ml Sodium Chloride (1/2 Normal Saline) 1,000 mls @ 75 mls/hr IV ASDIR [facility] Stop: 05/13/17 23:59 Last Admin: 05/13/17 12:12 Dose: 75 mls/hr Insulin Aspart (Novolog Vial Sliding Scale -) 1 vial SQ TIDAC [facility] PRN Reason: Protocol Last Admin: 05/13/17 12:30 Dose: 2 unit Insulin Detemir (Levemir Vial) 10 units SQ BID [facility] Last Admin: 05/13/17 10:10 Dose: 10 unit Latanoprost (Xalatan 0.005% Eye Drops -) 1 drop OS HS [facility] Last Admin: 05/12/17 21:50 Dose: 1 drop Metformin HCl (Glucophage -) 1,000 mg PO BID@0700,1630 [facility] Last Admin: 05/13/17 06:26 Dose: 1,000 mg Nifedipine (Procardia Xl -) 60 mg PO DAILY [facility] Pantoprazole Sodium (Protonix -) 20 mg PO DAILY [facility] Last Admin: 05/13/17 10:11 Dose: 20 mg Prednisone (Deltasone -) 40 mg PO DAILY [facility] Timolol Maleate (Timoptic 0.5%) 1 drop OU BID [facility] Last Admin: 05/12/17 21:51 Dose: Not Given - Objective Vital Signs: Vital Signs Temperature 98.3 F 05/13/17 06:00 Pulse Rate 58 L 05/13/17 06:00 Respiratory Rate 20 05/13/17 06:00 Blood Pressure 130/72 05/13/17 06:00 O2 Sat by Pulse Oximetry (%) 94 L 05/12/17 21:00 Constitutional: Yes: No Distress, Calm Neck: Yes: Supple Cardiovascular: Yes: Regular Rate and Rhythm Respiratory: Yes: Regular, Diminished Gastrointestinal: Yes: Normal Bowel Sounds, Soft, Abdomen, Obese Edema: No Labs: CBC, BMP 05/13/17 06:00 05/13/17 06:00 Problem List - Problems (1) COPD (chronic obstructive pulmonary disease) with emphysema Code(s): J43.9 - EMPHYSEMA, UNSPECIFIED Qualifiers: Emphysema type: unspecified Qualified Code(s): J43.9 - Emphysema, unspecified (2) Obesity Code(s): E66.9 - OBESITY, UNSPECIFIED (3) HTN (hypertension) Code(s): I10 - ESSENTIAL (PRIMARY) HYPERTENSION Qualifiers: Hypertension type: essential hypertension Qualified Code(s): I10 - Essential (primary) hypertension (4) Type 2 diabetes mellitus Code(s): E11.9 - TYPE 2 DIABETES MELLITUS WITHOUT COMPLICATIONS Qualifiers: Diabetes mellitus complication status: without complication Diabetes mellitus intermediate card tender insulin use: with residential use Qualified Code(s): E11.9 - Type 2 diabetes mellitus without complications (5) Mitral valve prolapse syndrome Code(s): I34.1 - NONRHEUMATIC MITRAL (VALVE) PROLAPSE (6) Atypical chest pain Code(s): R07.89 - OTHER CHEST PAIN (7) Pericardial hematoma Code(s): I31.2 - HEMOPERICARDIUM, NOT ELSEWHERE CLASSIFIED (8) Acute kidney injury Code(s): N17.9 - ACUTE KIDNEY FAILURE, UNSPECIFIED (9) Leukocytosis Code(s): D72.829 - ELEVATED WHITE BLOOD CELL COUNT, UNSPECIFIED Qualifiers: Leukocytosis type: unspecified Qualified Code(s): D72.829 - Elevated white blood cell count, unspecified Assessment/Plan 1. Acute COPD exacerbation and acute bronchitis resolving 2. Atypical chest pain syndrome 3. Mitral valve prolapse syndrome 4. Suspect pericardial hematoma, clinical correlation recommended 5. Type 2 DM 6. Possible OSAS 7. Former tobacco dependence 8. HTN/HCVD 9. Diastolic dysfunction 10. ANNITA 11. Leukocytosis referable to steroids PLAN: 1. Oral steroid taper, bronchodilators, empric antibiotics and O2 . outpatient PFTs 2. Transthoricic echocardiogram in 1 month to assess pericardium again. If still suspicious for mass or hematoma, consider cardiac MRI 3. Continue Procardia XL 60 qd, Vasotec 20 qd and d/c Lasix 40 qd pending renal fxn stabilization, judicious hydration 4. DVT and GI prophylaxis 5. Further cardiovascular w/u including stress testing may be performed as outpatient after resolution of COPD exacerbation
--- NOTE | 2017-05-13 13:05 | EKG ---
Test Reason : Blood Pressure : / mmHG Vent. Rate : 058 BPM Atrial Rate : 058 BPM P-R Int : 148 ms QRS Dur : 096 ms QT Int : 416 ms P-R-T Axes : 054 047 080 degrees QTc Int : 408 ms SINUS BRADYCARDIA NONSPECIFIC T WAVE ABNORMALITY ABNORMAL ECG WHEN COMPARED WITH ECG OF 09-MAY-2017 04:26, T WAVE INVERSION NOW EVIDENT IN LATERAL LEADS Confirmed by YENI ROLON, NBA ([id number]) on 05/13/2017 1:05:43 PM Referred By: ROSITA KINNEY Confirmed By:NBA JAIME MD
[2017-05-13] MEDS: predniSONE 20 MG TABLET (UD) PO SCH (13:28)
[2017-05-13] MEDS: NIFEdipine E.R 60 MG TABLET (UD) PO SCH (13:28)
[2017-05-13] MEDS: DORZOLAMIDE 2% HCL OPHTHALMIC SOLUTION 10 ML BOTTLE OU SCH ×2 (13:29→22:59)
[2017-05-13] MEDS: TIMOLOL 0.5% OPHTHALMIC SOL 5 ML BOTTLE OU SCH ×2 (13:32→23:00)
[2017-05-13] MEDS: methylPREDNISolone NA SUCC 40 MG/1 ML VIAL IVPB SCH (13:32)
--- NOTE | 2017-05-13 14:45 | PN ---
Physical Exam: SUBJECTIVE: Patient seen and examined by me in PM - Continued productive cough w/ mild improvement in SOB. Endorses feeling chills , lightheaded. Diaphoretic overnight. - Elevated WBC count and infectious symptoms. Will require evaluation for infection source. - Continued persistent CP at night. Deep CP midline peristernal, with radiation to back on L side. Similar to pain over last two years, but now more frequent. Will monitor and likely require further evaluation for pulmonary vs. cardiac infectious source. Other updates: - All cultures negative - EKG w/ TWIs in lateral leads - Trops neg OBJECTIVE: Vital Signs Period Temp Pulse Resp BP Sys/Gordon Pulse Ox Last 24 Hr 98.1 F-99 F 58-89 18-20 117-151/54-72 94-94 GENERAL: Awake, alert, and fully oriented, in no acute distress. Obese. HEAD: Normal with no signs of trauma. No lymphadenopathy EYES: sclera anicteric, conjunctiva clear. No lid lag. LUNGS: Mild rales throughout all lung hassan. Mild inspiratory/expiratory wheeze. No accessory muscle use. HEART: Regular rate and rhythm, normal S1 and S2. Grade III/ blowing systolic murmur appreciable at RUSB and apex. ABDOMEN: Soft, nontender, globular abdomen. Normoactive bowel sounds, no guarding, no rebound, no masses. Negative kee's sign. Bilateral ecchymoses on lower abdomen. MUSCULOSKELETAL: No bony deformities or tenderness. No CVA tenderness. UPPER EXTREMITIES: 2+ pulses, warm, well-perfused. No cyanosis. No peripheral edema. Possible spooning of nail-bed. LOWER EXTREMITIES: 2+ pulses, warm, well-perfused. No calf tenderness. 1+ non- pitting edema bilaterally. Wearing compression stockings Laboratory Results - last 24 hr 05/12/17 05/12/17 05/13/17 17:37 21:48 00:48 WBC RBC Hgb Hct MCV MCH MCHC RDW Plt Count MPV Neutrophils % Lymphocytes % Monocytes % Eosinophils % Basophils % Sodium Potassium Chloride Carbon Dioxide Anion Gap BUN Creatinine Creat Clearance w eGFR POC Glucometer 420 473 323 Random Glucose Calcium Total Bilirubin AST ALT Alkaline Phosphatase Creatine Kinase Troponin I Total Protein Albumin 05/13/17 05/13/17 05/13/17 06:00 06:00 06:24 WBC 18.3 H RBC 4.57 Hgb 13.6 Hct 40.8 MCV 89.3 MCH 29.7 MCHC 33.2 RDW 12.4 Plt Count 243 MPV 8.5 Neutrophils % 89.5 H D Lymphocytes % 7.8 L D Monocytes % 2.6 L Eosinophils % 0.0 D Basophils % 0.1 Sodium 138 Potassium 4.2 Chloride 98 Carbon Dioxide 28 Anion Gap 12 BUN 39 H D Creatinine 1.4 H Creat Clearance w eGFR 38.23 POC Glucometer 279 Random Glucose 309 H* D Calcium 8.6 Total Bilirubin 0.5 D AST 10 L ALT 20 Alkaline Phosphatase 109 Creatine Kinase Troponin I Total Protein 5.9 L Albumin 3.1 L 05/13/17 05/13/17 11:15 11:45 WBC RBC Hgb Hct MCV MCH MCHC RDW Plt Count MPV Neutrophils % Lymphocytes % Monocytes % Eosinophils % Basophils % Sodium Potassium Chloride Carbon Dioxide Anion Gap BUN Creatinine Creat Clearance w eGFR POC Glucometer 250 Random Glucose Calcium Total Bilirubin AST ALT Alkaline Phosphatase Creatine Kinase 30 Troponin I 0.02 Total Protein Albumin EKG: TWI in lateral leads. See cardiology note. Active Medications Generic Name Dose Route Start Last Admin Trade Name Freq PRN Reason Stop Dose Admin Acetaminophen 650 mg 05/10/17 07:22 05/11/17 06:39 Tylenol - PO 650 mg Q4H PRN Administration FEVER OR PAIN Aclidinium [place] 1 puff 05/09/17 22:00 05/13/17 10:10 Tudorza - IH 1 puff BID KENNY Administration Albuterol Sulfate 1 amp 05/09/17 10:46 05/12/17 12:02 Ventolin 0.083% Nebulizer Soln - NEB 1 amp Q4H PRN Administration Dyspnea Alprazolam 1 mg 05/11/17 06:27 05/12/17 22:27 Xanax - PO 1 mg TID PRN Administration ANXIETY Amoxicillin/Clavulanate Potassium 1 tab 05/10/17 08:00 05/13/17 08:44 Augmentin - 875mg Tablet PO 1 tab BID@0800,1730 KENNY Administration Budesonide/Formoterol Fumarate 2 puff 05/09/17 22:00 05/13/17 10:10 Symbicort 80/4.5mcg - IH 2 puff BID KENNY Administration Cyclobenzaprine HCl 10 mg 05/11/17 06:28 05/12/17 22:26 Flexeril - PO 05/13/17 23:59 10 mg TID PRN Administration MUSCLE SPASMS Dorzolamide HCl 1 drop 05/09/17 22:00 05/13/17 13:29 Trusopt 2% OU 1 drop BID KENNY Administration Enalapril Maleate 20 mg 05/10/17 10:00 05/13/17 10:10 Vasotec - PO 20 mg DAILY KENNY Administration Fluoxetine HCl 40 mg 05/10/17 10:00 05/13/17 10:11 Prozac - PO 40 mg DAILY KENNY Administration Gabapentin 100 mg 05/09/17 14:00 05/13/17 13:28 Neurontin - PO 100 mg TID KENNY Administration Guaifenesin 10 ml 05/12/17 09:34 05/13/17 06:33 Robitussin - PO 10 ml Q6H PRN Administration COUGH Sodium Chloride 1,000 mls @ 75 mls/hr 05/13/17 11:15 05/13/17 12:12 1/2 Normal Saline IV 05/13/17 23:59 75 mls/hr ASDIR KENNY Administration Insulin Aspart 1 vial 05/10/17 07:00 05/13/17 12:30 Novolog Vial Sliding Scale - SQ 2 unit TIDAC KENNY Administration Protocol Insulin Detemir 10 units 05/12/17 22:00 05/13/17 10:10 Levemir Vial SQ 10 unit BID KENNY Administration Latanoprost 1 drop 05/09/17 22:00 05/12/17 21:50 Xalatan 0.005% Eye Drops - OS 1 drop HS KENNY Administration Metformin HCl 1,000 mg 05/12/17 16:30 05/13/17 06:26 Glucophage - PO 1,000 mg BID@0700,1630 KENNY Administration Nifedipine 60 mg 05/13/17 10:00 05/13/17 13:28 Procardia Xl - PO 60 mg DAILY KENNY Administration Pantoprazole Sodium 20 mg 05/10/17 10:00 05/13/17 10:11 Protonix - PO 20 mg DAILY KENNY Administration Prednisone 40 mg 05/13/17 11:15 05/13/17 13:28 Deltasone - PO 40 mg DAILY KENNY Administration Timolol Maleate 1 drop 05/09/17 22:00 05/13/17 13:32 Timoptic 0.5% OU Not Given BID KENNY ASSESSMENT/PLAN: Assessment: 62 yo woman w/ pmh of COPD, GERD, HTN and DM, who presented to the ED with 1.5 weeks of worsening cough and SOB after viral URI, now w/ suspected COPD exacerbation/possible PNA. Patient continues to complain of worsening CP, radiating to the back on L side. Studies notable for continue elevated WBC. Pt improved slightly with SOB on inhaled brochodilators, tudorza, steroids, but maintains a productive cough. Will require further evaluation for pulmonary infectious source. Chest pain and non-specific Twave abnormalities suggestive of possible pericarditis, given prior abnml echo. Pt will require f/u outpatient management of COPD for symptom control and outpatient eval of possible stable angina. Plan: #COPD exacerbation: - Continue current regimen: - inhaled bronchodilators - symbicort 160 mcg - Solumedrol 40mg Q6h. Taper with improving condition. - Tudorza 1 puff daily - O2 NC PRN - Recommend yearly CT scan screening - Outpatient PFTs #Possible PNA/URI - Continue Abx for CAP coverage - Trend fever curve. Monitor for sign of infection - Sputum Cx #Chest pain/Pericarditis?: - EKG w/ TWI in lateral leads - Trop neg - Consider f/u echo - Blood Cx's - Cardiology following - Outpatient eval for CAD, given fam hx and exertional angina - PPI #Pericardial hematoma - F/u Echo in 1 month - Consider P HTN work-up given CT findings Marshall Wooten MD, PGY1 Plan to be discussed with attending, Dr. Zhang Problem List - Problems (1) Atypical chest pain Code(s): R07.89 - OTHER CHEST PAIN (2) Mitral valve prolapse syndrome Code(s): I34.1 - NONRHEUMATIC MITRAL (VALVE) PROLAPSE (3) Pericardial hematoma Code(s): I31.2 - HEMOPERICARDIUM, NOT ELSEWHERE CLASSIFIED (4) COPD (chronic obstructive pulmonary disease) with emphysema Code(s): J43.9 - EMPHYSEMA, UNSPECIFIED Qualifiers: Emphysema type: unspecified Qualified Code(s): J43.9 - Emphysema, unspecified Visit type - Emergency Visit Emergency Visit: No - New Patient This patient is new to me today: No - Critical Care Critical Care patient: No
[2017-05-13] MEDS ORDERED: INSULIN DETEMIR 100 UNITS/ML MDV SQ ONE (18:14)
[2017-05-13] MEDS: LATANOPROST 0.005% OPHTH SOLN 2.5ML BOTTLE OS SCH (22:59)
[2017-05-13] MEDS: ALPRAZolam 2 MG TABLET PO PRN (23:06)
[2017-05-13] MEDS: CYCLOBENZAPRINE HCL 10 MG TABLET (FP) PO PRN (23:07)
[2017-05-14 05:52] VITALS: BP 118/61; PULSE 58; TEMP 97.5
[2017-05-14] MEDS: metFORMIN HCL 500 MG TABLET (FP) PO SCH (06:27)
[2017-05-14] MEDS: INSULIN SLIDING SCALE (NOVOLOG) 1 VIAL SQ SCH ×2 (06:27→11:40)
[2017-05-14] MEDS: GABAPENTIN 100 MG CAPSULE (FP) PO SCH (06:27)
[2017-05-14] MEDS ORDERED: PT OWN MED DRAWER 7, Y5N ONE ×3 (06:56→10:10)
--- NOTE | 2017-05-14 07:25 | DS ---
Physical Examination Vital Signs: Vital Signs Temperature 97.5 F L 05/14/17 05:50 Pulse Rate 58 L 05/14/17 05:50 Respiratory Rate 20 05/14/17 05:50 Blood Pressure 118/61 05/14/17 05:50 O2 Sat by Pulse Oximetry (%) 95 05/13/17 21:00 Constitutional: Yes: Well Nourished, No Distress Eyes: Yes: Conjunctiva Clear HENT: Yes: Normocephalic. No: Thrush Cardiovascular: Yes: Regular Rate and Rhythm Respiratory: Yes: CTA Bilaterally (scattered wheezing on forced expiration) Gastrointestinal: Yes: Normal Bowel Sounds, Soft Extremities: Yes: WNL Edema: No Neurological: Yes: WNL ...Motor Strength: WNL Labs: CBC, BMP 05/13/17 06:00 Discharge Summary Reason For Visit: COPD, OBESITY Current Active Problems Acute kidney injury (Acute) Atypical chest pain (Acute) Leukocytosis (Acute) Mitral valve prolapse syndrome (Acute) Pericardial hematoma (Acute) COPD (chronic obstructive pulmonary disease) with emphysema (Chronic 08/03/14) Nicotine dependence (Chronic 08/03/14) Obesity (Chronic 08/03/14) Hospital Course: admitted for acute COPD exacerbation and bronchitis. CT chest was c/w bronchitis , no PNA, no mass. Echo raised possibility of pericardial hematoma. was seen by pulmonary and cardiology consults. improved clinically on iv steroids and po augmentin. medically stable to dc home with oral abx. should f/up for yearly chest CT screening. needs repeat echo in 4 weeks to reevaluate pericardial hematoma vs. mass-at that point may need cardiac MRI. needs evaluation for sleep apnea. Condition: Fair - Instructions Diet, Activity, Other Instructions: call / for cardiology appointment in 3-4 weeks next week call for pulmonary follow up diabetic diet for now. Referrals: Cait Russo MD [Primary Care Provider] - Disposition: HOME - Home Medications Comprehensive Discharge Medication List: Ambulatory Orders Albuterol 0.083% Nebulizer [place] [Ventolin 0.083% Nebulizer Soln -] 1 amp NEB PRN 05/09/17 Alprazolam [Xanax] 1 mg PO DAILY 05/09/17 Aspirin [ASA -] 81 mg PO DAILY 05/09/17 Dorzolamide HCl/Timolol Maleat [Cosopt Eye Drops] 10 ml OP TID 05/09/17 Enalapril Maleate [Vasotec] 20 mg PO DAILY 05/09/17 Fluoxetine HCl [Prozac] 40 mg PO DAILY 05/09/17 Flurazepam HCl 30 mg PO HS 05/09/17 Fluticasone/Salmeterol [Advair 250-50 Diskus] 05/09/17 Gabapentin [Neurontin -] 100 mg PO Q8H 05/09/17 Latanoprost 0.005% Eye Drops [Xalatan 0.005% Eye Drops -] 1 drop OS HS 05/09/17 Nifedipine [Nifedipine ER] 60 mg PO DAILY 05/09/17 Omeprazole Magnesium [Prilosec] 10 mg PO DAILY 05/09/17 Tiotropium [place] [Spiriva] 18 mcg IH DAILY 05/09/17 Amox-Tr/K Cl [Augmentin 875-125mg Tablet -] 1 tab PO BID@0800,1730 #10 tablet Metformin HCl [Glucophage -] 1,000 mg PO BID@0700,1630 #60 tablet 05/14/17 Prednisone 10 mg PO DAILY #30 tablet 05/14/17
[2017-05-14 07:46] LABS: ANION GAP 10 (8-16); CALCIUM 8.5 mg/dL (8.5-10.1); CO2 27 mmol/L (21-32); CREATININE 1.1 mg/dL (0.55-1.02); GLUCOSE,RANDOM 211 mg/dL (74-106)
[2017-05-14] MEDS: AMOX TR/POT CLAV 875MG/125MG TABLETS (FP) PO SCH (07:53)
[2017-05-14] MEDS: predniSONE 20 MG TABLET (UD) PO SCH (09:45)
[2017-05-14] MEDS: BUDESONIDE/FORMETEROL FUMARATE 80/4.5 mcg INHALER IH SCH (09:46)
[2017-05-14] MEDS: PANTOPRAZOLE 20 MG TABLET (FP) PO SCH (09:46)
[2017-05-14] MEDS: NIFEdipine E.R 60 MG TABLET (UD) PO SCH (09:46)
[2017-05-14] MEDS: INSULIN DETEMIR 100 UNITS/ML MDV SQ SCH (09:46)
[2017-05-14] MEDS: TIMOLOL 0.5% OPHTHALMIC SOL 5 ML BOTTLE OU SCH (09:47)
[2017-05-14] MEDS: DORZOLAMIDE 2% HCL OPHTHALMIC SOLUTION 10 ML BOTTLE OU SCH (09:48)
[2017-05-14] MEDS: ACLIDINIUM BROMIDE 400 MCG/INH AERO.POWD IH SCH (09:48)
[2017-05-14] MEDS: ENALAPRIL MALEATE 10 MG TABLET (FP) PO SCH (09:49)
[2017-05-14] MEDS: FLUoxetine HCL 20 MG CAPSULE (FP) PO SCH (09:50)
--- NOTE | 2017-05-14 11:45 | PN ---
Progress Note, Physician History of Present Illness: Dyspnea slowly improving. No further atypical sharp chest pain. - Current Medication List Current Medications: Active Medications Acetaminophen (Tylenol -) 650 mg PO Q4H PRN PRN Reason: FEVER OR PAIN Last Admin: 05/11/17 06:39 Dose: 650 mg Aclidinium [place] (Tudorza -) 1 puff IH BID [facility] Last Admin: 05/14/17 09:48 Dose: 1 puff Albuterol Sulfate (Ventolin 0.083% Nebulizer Soln -) 1 amp NEB Q4H PRN PRN Reason: Dyspnea Last Admin: 05/12/17 12:02 Dose: 1 amp Amoxicillin/Clavulanate Potassium (Augmentin - 875mg Tablet) 1 tab PO BID@0800, 1730 [facility] Last Admin: 05/14/17 07:53 Dose: 1 tab Budesonide/Formoterol Fumarate (Symbicort 80/4.5mcg -) 2 puff IH BID [facility] Last Admin: 05/14/17 09:46 Dose: 2 puff Dorzolamide HCl (Trusopt 2%) 1 drop OU BID [facility] Last Admin: 05/14/17 09:48 Dose: 1 drop Enalapril Maleate (Vasotec -) 20 mg PO DAILY [facility] Last Admin: 05/14/17 09:49 Dose: 20 mg Fluoxetine HCl (Prozac -) 40 mg PO DAILY [facility] Last Admin: 05/14/17 09:50 Dose: 40 mg Gabapentin (Neurontin -) 100 mg PO TID [facility] Last Admin: 05/14/17 06:27 Dose: 100 mg Guaifenesin (Robitussin -) 10 ml PO Q6H PRN PRN Reason: COUGH Last Admin: 05/13/17 06:33 Dose: 10 ml Insulin Aspart (Novolog Vial Sliding Scale -) 1 vial SQ TIDAC [facility] PRN Reason: Protocol Last Admin: 05/14/17 11:40 Dose: 2 unit Insulin Detemir (Levemir Vial) 10 units SQ BID [facility] Last Admin: 05/14/17 09:46 Dose: 10 unit Latanoprost (Xalatan 0.005% Eye Drops -) 1 drop OS HS [facility] Last Admin: 05/13/17 22:59 Dose: 1 drop Metformin HCl (Glucophage -) 1,000 mg PO BID@0700,1630 [facility] Last Admin: 05/14/17 06:27 Dose: 1,000 mg Nifedipine (Procardia Xl -) 60 mg PO DAILY [facility] Last Admin: 05/14/17 09:46 Dose: 60 mg Pantoprazole Sodium (Protonix -) 20 mg PO DAILY [facility] Last Admin: 05/14/17 09:46 Dose: 20 mg Prednisone (Deltasone -) 40 mg PO DAILY [facility] Last Admin: 05/14/17 09:45 Dose: 40 mg Timolol Maleate (Timoptic 0.5%) 1 drop OU BID [facility] Last Admin: 05/14/17 09:47 Dose: 1 drop - Objective Vital Signs: Vital Signs Temperature 97.5 F L 05/14/17 05:50 Pulse Rate 58 L 05/14/17 05:50 Respiratory Rate 20 05/14/17 08:16 Blood Pressure 118/61 05/14/17 05:50 O2 Sat by Pulse Oximetry (%) 94 L 05/14/17 08:16 Constitutional: Yes: No Distress, Calm Neck: Yes: Supple Cardiovascular: Yes: Regular Rate and Rhythm Respiratory: Yes: Regular, Diminished, Wheezes Gastrointestinal: Yes: Normal Bowel Sounds, Soft, Abdomen, Obese Edema: No Labs: CBC, BMP 05/13/17 06:00 05/14/17 06:35 Problem List - Problems (1) COPD (chronic obstructive pulmonary disease) with emphysema Code(s): J43.9 - EMPHYSEMA, UNSPECIFIED Qualifiers: Emphysema type: unspecified Qualified Code(s): J43.9 - Emphysema, unspecified (2) Obesity Code(s): E66.9 - OBESITY, UNSPECIFIED (3) HTN (hypertension) Code(s): I10 - ESSENTIAL (PRIMARY) HYPERTENSION Qualifiers: Hypertension type: essential hypertension Qualified Code(s): I10 - Essential (primary) hypertension (4) Type 2 diabetes mellitus Code(s): E11.9 - TYPE 2 DIABETES MELLITUS WITHOUT COMPLICATIONS Qualifiers: Diabetes mellitus complication status: without complication Diabetes mellitus meterman insulin use: with meterman use Qualified Code(s): E11.9 - Type 2 diabetes mellitus without complications (5) Mitral valve prolapse syndrome Code(s): I34.1 - NONRHEUMATIC MITRAL (VALVE) PROLAPSE (6) Atypical chest pain Code(s): R07.89 - OTHER CHEST PAIN (7) Pericardial hematoma Code(s): I31.2 - HEMOPERICARDIUM, NOT ELSEWHERE CLASSIFIED (8) Acute kidney injury Code(s): N17.9 - ACUTE KIDNEY FAILURE, UNSPECIFIED (9) Leukocytosis Code(s): D72.829 - ELEVATED WHITE BLOOD CELL COUNT, UNSPECIFIED Qualifiers: Leukocytosis type: unspecified Qualified Code(s): D72.829 - Elevated white blood cell count, unspecified Assessment/Plan 1. Acute COPD exacerbation and acute bronchitis resolving 2. Atypical chest pain syndrome 3. Mitral valve prolapse syndrome 4. Suspect pericardial hematoma, clinical correlation recommended 5. Type 2 DM 6. Possible OSAS 7. Former tobacco dependence 8. HTN/HCVD 9. Diastolic dysfunction 10. ANNITA resolved 11. Leukocytosis referable to steroids PLAN: 1. Oral steroid taper, bronchodilators, empric antibiotics and O2 . outpatient PFTs 2. Transthoricic echocardiogram in 1 month to assess pericardium again. If still suspicious for mass or hematoma, consider cardiac MRI 3. Continue Procardia XL 60 qd, Vasotec 20 qd and resume Lasix 20 qd with renal fxn stabilization 4. DVT and GI prophylaxis 5. Further cardiovascular w/u including stress testing may be performed as outpatient after resolution of COPD exacerbation
[2017-05-15] MEDS ORDERED: FUROSEMIDE 20 MG TABLET (FP) PO SCH (10:00)
== END 2017-05-14 14:46 | disposition home or self-care (01) | DRG 140 ==
LOC: JER 21:52 → JERBED 05-09 05:18 → J7W 05-09 08:39
PROVIDERS: ADMIT Internal Medicine; ATTEND Internal Medicine
DX: J44.1 Chronic obstructive pulmonary disease with (acute) exacerbation (principal); J20.9 Acute bronchitis, unspecified; J44.0 Chronic obstructive pulmonary disease with (acute) lower respiratory infection; R07.89 Other chest pain; N17.9 Acute kidney failure, unspecified; D72.829 Elevated white blood cell count, unspecified; I11.9 Hypertensive heart disease without heart failure; E66.9 Obesity, unspecified; Z68.35 Body mass index [BMI] 35.0-35.9, adult; I31.2 Hemopericardium, not elsewhere classified; I34.1 Nonrheumatic mitral (valve) prolapse; E11.65 Type 2 diabetes mellitus with hyperglycemia; K21.9 Gastro-esophageal reflux disease without esophagitis; Z87.891 Personal history of nicotine dependence
CPT/HCPCS: 36415; 71010-TC; 71250-TC; 80048; 80053; 81003; 81015; 82550; 83735; 84484; 85025; 85027; 87040; 87086; 93005; 93010; 93306-TC; 94640; 99281-25

== ENCOUNTER → 2018-09-19 | Day surgery (SDC) | payer OTHER ==
[2018-09-19 11:55] LABS: BASO % 0.8 % (0-2.0); EOS % 3.4 % (0-4.5); HEMATOCRIT 43.3 % (32.4-45.2); LYMPH % 47.7 % (8-40); MCH 30.4 pg (25.7-33.7); MCHC 34.8 g/dl (32.0-36.0); MEAN CELL VOLUME 87.4 fl (80-96); MONO % 7.4 % (3.8-10.2); NEUT % 40.7 % (42.8-82.8); PLATELET COUNT 259 K/MM3 (134-434); RBC 4.95 M/mm3 (3.60-5.2); WHITE BLOOD COUNT 8.8 K/mm3 (4.0-10.0)
[2018-09-19 11:57] LABS: URINE APPEARANCE CLEAR; URINE BILIRUBIN NEGATIVE (<2.0 mg/dL); URINE COLOR LTYELLOW; URINE GLUCOSE (UA) NEGATIVE (NEGATIVE); URINE KETONE NEGATIVE (NEGATIVE); URINE LEUK ESTERASE NEGATIVE (NEGATIVE); URINE NITRITE NEGATIVE (NEGATIVE); URINE PROTEIN NEGATIVE (NEGATIVE); URINE UROBILINOGEN NEGATIVE mg/dL (0.2-1.0)
[2018-09-19 12:35] LABS: ERYTHROCYTE SEDIMENTATION RATE 13 mm/hr (0-30)
[2018-09-19 13:02] LABS: ALK PHOS 120 U/L (45-117); ANION GAP 7 MMOL/L (8-16); BILIRUBIN,DIRECT 0.1 mg/dL (0.0-0.2); BILIRUBIN,TOTAL 0.7 mg/dL (0.2-1); BLOOD UREA NITROGEN 23 mg/dL (7-18); CALCIUM 9.2 mg/dL (8.5-10.1); CHLORIDE 105 mmol/L (98-107); CHOLESTEROL 230 mg/dL (50-200); CO2 29 mmol/L (21-32); CREATININE 1.1 mg/dL (0.55-1.3); GLUCOSE,RANDOM 147 mg/dL (74-106); HDL CHOLESTEROL 39 mg/dL (40-60); POTASSIUM 4.9 mmol/L (3.5-5.1); SGOT/AST 21 U/L (15-37); SGPT/ALT 28 U/L (13-61); SODIUM 141 mmol/L (136-145); TOT PROT 7.4 g/dl (6.4-8.2); TRIGLYCERIDES 211 mg/dL (0-150)
[2018-09-20 06:06] LABS: CARCINOEMBRYONIC ANTIGEN 3.2 ng/mL (0.0-4.7)
--- NOTE | 2018-09-20 18:39 | PATH ---
Cytology Non-Gynecological Report Patient Name: DILEEP RIVERA [facility]. Rec. #: [id number] /Age/Gender: 1955 (Age: 63) / F Account: [id number] Location: RADIOLOGY INTER Taken: 09/19/2018 Received: 09/19/2018 Reported: 09/20/2018 Physicians: Jerilyn Mayo M.D. Specimen(s) Received THYROID FNA LEFT Clinical History Left thyroid nodule, 1.98 x 1.15 x 1.10 cm Final Diagnosis THYROID, LEFT, FINE NEEDLE ASPIRATION: UNSATISFACTORY FOR EVALUATION. BETHESDA CLASS I: CYSTIC THYROID LESION WITH MACROPHAGES RARE FOLLICULAR CELLS AND RARE MACROPHAGES IN A BACKGROUND OF SOME COLLOID PRESENT. SEE COMMENT. Comment: The specimen has insufficient follicular cell clusters and/or colloid; and suboptimal for complete cytopathologic evaluation according to [employer] [place] System for Reporting Thyroid FNA. If the nodule has worrisome ultrasound imaging properties, suggest repeat FNA, as warranted. Electronically Signed Marge Castellanos M.D. Gross Description Received are eight direct smears, four of which are air-dried and Diff-Quik stained, and four of which are alcohol fixed and Pap stained. Also received is 20 ml of bloody formalin from which one cellblock is prepared.
[2018-09-21 00:07] LABS: CA 27.29 18 U/mL (0.0-38.6)
== END | disposition home or self-care (01) ==
LOC: JRADIR 08:21
PROVIDERS: ATTEND Internal Medicine Endocrinology, Diabetes & Metabolism
PROC: 0G9G3ZX Drainage of Left Thyroid Gland Lobe, Percutaneous Approach, Diagnostic (ICD-10-PCS; principal; 2018-09-19)
DX: E04.1 Nontoxic single thyroid nodule (principal)
CPT/HCPCS: 36415; 76942; 80053; 80061; 80076; 81003; 82306; 82378; 82607; 83036; 83721; 84436; 84443; 84479; 85025; 85651; 86140; 86300; 86301; 86304; 86618; 88173; 88305-TC